=== PATIENT | male | born 1930 | race Caucasian/White ===

== ENCOUNTER 2016-06-02 10:12 | Outpatient (CLI) | payer MEDICARE, OTHER | END 2016-06-02 10:13 | disposition home or self-care (01) | DX: I48.91 Unspecified atrial fibrillation (principal); Z79.01 Long term (current) use of anticoagulants ==

== ENCOUNTER 2016-06-09 10:01 | Outpatient (CLI) | payer MEDICARE, OTHER | END 2016-06-09 10:02 | disposition home or self-care (01) | DX: I48.91 Unspecified atrial fibrillation (principal) ==

== ENCOUNTER 2016-06-17 09:42 | Outpatient (CLI) | payer MEDICARE, OTHER | END 2016-06-17 09:43 | disposition home or self-care (01) | DX: I48.91 Unspecified atrial fibrillation (principal); Z79.01 Long term (current) use of anticoagulants ==

== ENCOUNTER 2016-07-02 11:12 | Outpatient (CLI) | payer MEDICARE, OTHER | END 2016-07-02 11:13 | disposition home or self-care (01) | DX: R06.02 Shortness of breath (principal); R91.8 Other nonspecific abnormal finding of lung field ==

== ENCOUNTER 2016-07-04 12:28 | Outpatient (CLI) | payer MEDICARE, OTHER | END 2016-07-04 12:29 | disposition home or self-care (01) | DX: I36.1 Nonrheumatic tricuspid (valve) insufficiency (principal); I48.91 Unspecified atrial fibrillation; I51.7 Cardiomegaly; R06.02 Shortness of breath ==

== ENCOUNTER 2016-07-14 09:22 | Outpatient (CLI) | payer MEDICARE, OTHER | END 2016-07-14 09:23 | disposition home or self-care (01) | DX: I48.91 Unspecified atrial fibrillation (principal); Z79.01 Long term (current) use of anticoagulants ==

== ENCOUNTER 2016-08-04 09:52 | Outpatient (CLI) | payer MEDICARE, OTHER | END 2016-08-04 09:53 | disposition home or self-care (01) | DX: I48.91 Unspecified atrial fibrillation (principal); Z79.01 Long term (current) use of anticoagulants ==

== ENCOUNTER 2016-08-26 09:53 | Outpatient (CLI) | payer MEDICARE, OTHER | END 2016-08-26 09:54 | disposition home or self-care (01) | DX: I48.91 Unspecified atrial fibrillation (principal); Z79.01 Long term (current) use of anticoagulants ==

== ENCOUNTER 2016-09-22 09:12 | Outpatient (CLI) | payer MEDICARE, OTHER | END 2016-09-22 09:13 | disposition home or self-care (01) | DX: I48.91 Unspecified atrial fibrillation (principal); Z79.01 Long term (current) use of anticoagulants ==

== ENCOUNTER 2016-10-21 10:30 | Outpatient (CLI) | payer MEDICARE, OTHER | END 2016-10-21 10:31 | disposition home or self-care (01) | LOC: LAB.F 10:30 | PROVIDERS: ATTEND Internal Medicine | DX: I48.91 Unspecified atrial fibrillation (principal); Z79.01 Long term (current) use of anticoagulants | CPT/HCPCS: 85610 ==

== ENCOUNTER 2016-11-08 21:49 | Outpatient (CLI) | payer MEDICARE, OTHER | END 2016-11-08 21:50 | disposition critical access hospital (66) | LOC: EMS 21:49 | PROVIDERS: ATTEND Surgery | DX: R55 Syncope and collapse (principal) | CPT/HCPCS: A0425; A0427 ==

== ENCOUNTER 2016-11-08 22:37 | Emergency (ER) | payer MEDICARE, OTHER ==
--- NOTE | 2016-11-08 22:43 | ED Physician Documentation ---
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 still unconscious on EMS arrival but subsequently has completely returned to baseline LOC without specific interventions. on ED arrival, only c/o mild nausea. Review of Systems Constitutional: reports: Reviewed and negative Eyes: reports: Reviewed and negative Cardiac: reports: Reviewed and negative Respiratory: reports: Reviewed and negative GI: reports: Nausea. denies: Abdominal Pain, Vomiting : denies: Dysuria, Incontinent Neurologic: reports: Syncope, LOC. denies: Generalized weakness, Focal weakness , Numbness, Difficulty speaking, Seizure, Headache, Head injury PD PAST MEDICAL HISTORY - Past Medical History Past Medical History: Yes Cardiovascular: Hypertension, Atrial fibrillation Neuro: TIA - Present Medications Home Medications: Ambulatory Orders Medication Instructions Recorded Confirmed Carvedilol 25 mg PO 11/08/16 Lisinopril 5 mg PO 11/08/16 Warfarin [Coumadin] 0 mg PO 1400 11/08/16 11/08/16 levETIRAcetam [Keppra] 0 mg PO 11/08/16 - Allergies Allergies/Adverse Reactions: Allergies Allergy/AdvReac Type Severity Reaction Status Date / Time shellfish derived Allergy Severe Emesis/Diar Verified 05/13/16 15:49 breann procaine Allergy Intermediate Swelling Verified 05/13/16 15:49 diltiazem AdvReac Intermediate Hypotension Verified 05/13/16 15:49 bee stings Allergy Severe Anaphylaxis Uncoded 05/13/16 15:49 salmon AdvReac Severe Emesis/Diar Uncoded 05/13/16 15:49 breann shrimp AdvReac Severe Emesis/Diar Uncoded 05/13/16 15:49 breann - Living Situation Living Situation: reports: With spouse/s.o. Living Arrangement: reports: At home PD ED PE NORMAL - Vitals Vital signs reviewed: Yes - General General: Alert and oriented X 3, No acute distress, Well developed/nourished - HEENT HEENT: Atraumatic, PERRL, EOMI, Moist mucous membranes - Neck Neck: Supple, no meningeal sign, No bony TTP - Cardiac Cardiac: No murmur, Strong equal pulses - Respiratory Respiratory: No respiratory distress, Clear bilaterally - Abdomen Abdomen: Soft, Non tender, Non distended - Derm Derm: Normal color, Warm and dry - Extremities Extremities: No edema - Neuro Neuro: Alert and oriented X 3, tin assorter 2-12 intact, No motor deficit, No sensory deficit, Normal speech GCS Score: 15 PD ED PE EXPANDED - Cardiac Cardiac: Irregularly irregular Results - Vitals Vitals: Vital Signs - 24 hr 11/08/16 11/09/16 23:50 01:19 Heart Rate 85 100 Respiratory 18 20 Rate Blood Pressure 128/68 125/85 H O2 Saturation 97 99 Oxygen O2 Source [] Room air O2 Source [] Room air O2 Source Room air - EKG (time done) No standard instances Rate: Rate (enter#) (78) Rhythm: Atrial fibrillation [place]: Normal QRS: Normal Ischemia: Normal ST segments - Labs Labs: Laboratory Tests 11/08/16 11/08/16 11/08/16 22:51 22:51 22:51 WBC 6.4 RBC 4.23 L Hgb 13.2 L Hct 39.7 L MCV 93.8 MCH 31.3 H MCHC 33.3 RDW 13.8 Plt Count 153 MPV 8.3 Neut # 4.0 Lymph # 1.3 L [place] # 0.7 Eos # 0.4 Baso # 0.0 Absolute Nucleated RBC 0.00 Nucleated RBCs 0.0 PT 30.3 H INR 2.7 H APTT 31.5 Sodium 136 Potassium 4.0 Chloride 100 L Carbon Dioxide 27 Anion Gap 9.0 BUN 27 H Creatinine 1.1 Estimated GFR (MDRD) 64 L Glucose 130 H Calcium 9.1 Troponin I 11/08/16 22:51 WBC RBC Hgb Hct MCV MCH MCHC RDW Plt Count MPV Neut # Lymph # [place] # Eos # Baso # Absolute Nucleated RBC Nucleated RBCs PT INR APTT Sodium Potassium Chloride Carbon Dioxide Anion Gap BUN Creatinine Estimated GFR (MDRD) Glucose Calcium Troponin I < 0.04 - Rads (name of study) chest xray Radiology: Prelim report reviewed, See rad report CT head Radiology: Prelim report reviewed, See rad report PD MEDICAL DECISION MAKING - ED course Complexity details: reviewed results, re-evaluated patient, considered differential, d/w patient ED course: patient remained asymptomatic (except for mild nausea on presentation which resolved spontaneously) during ED stay. reexamination prior to disposition (d/c home) reveals no neurologic abnormalities, no focal deficits. he was able to ambulate with minimal assistance prior to discharge Departure - Departure Disposition: 01 Home, Self Care Clinical Impression: Syncope Qualifiers: Syncope type: unspecified Qualified Code(s): R55 - Syncope and collapse Condition: Good Instructions: ED Fainting Unkn Cause Follow-Up: Angus Avilez MD [Primary Care Provider] - Within 1 week Discharge Date/Time: 11/09/16 01:40
[2016-11-08 23:20] LABS: CALCIUM 9.1 mg/dL (8.5-10.3); CREATININE 1.1 mg/dL (0.6-1.2)
[2016-11-08 23:21] LABS: BASOPHILS % (AUTO) 0.6 %; EOSINOPHILS # (AUTO) 0.4 10^3/uL (0.0-0.7); EOSINOPHILS % (AUTO) 6.5 %; HCT - HEMATOCRIT 39.7 % (42.0-52.0); HGB - HEMOGLOBIN 13.2 g/dL (14.0-18.0); LYMPHOCYTES # (AUTO) 1.3 10^3/uL (1.5-3.5); LYMPHOCYTES % (AUTO) 19.9 %; MEAN CORPUSCULAR HEMOGLOBIN 31.3 pg (27.0-31.0); MEAN CORPUSCULAR HGB CONC 33.3 g/dL (32.0-36.0); MEAN CORPUSCULAR VOLUME 93.8 fL (80.0-94.0); MEAN PLATELET VOLUME 8.3 fL (7.4-11.4); MONOCYTES # (AUTO) 0.7 10^3/uL (0.0-1.0); MONOCYTES % (AUTO) 10.2 %; NEUTROPHILS % (AUTO) 62.8 %; RED BLOOD COUNT 4.23 10^6/uL (4.70-6.10); RED CELL DISTRIBUTION WIDTH 13.8 % (12.0-15.0); UNCORRECTED WHITE BLOOD COUNT 6.4 x10^3/uL; WHITE BLOOD COUNT 6.4 x10^3/uL (4.8-10.8)
[2016-11-08 23:26] LABS: INR 2.7 (0.8-1.2); PT - PROTHROMBIN TIME 30.3 secs (9.9-12.6)
[2016-11-08 23:33] LABS: PARTIAL THROMBOPLASTIN TIME 31.5 secs (24.9-33.3)
--- NOTE | 2016-11-08 23:43 | XRAY Preliminary Report ---
Exam: XR Chest 2 View PA/LAT IMPRESSION: No acute cardiopulmonary abnormality. [facility] SITE ID: [id number]
--- NOTE | 2016-11-08 23:45 | XRAY Report ---
EXAM: CHEST RADIOGRAPHY EXAM DATE: 11/08/2016 11:30 PM. CLINICAL HISTORY: Syncope. COMPARISON: 07/02/2016 chest x-ray. TECHNIQUE: 2 views. FINDINGS: Lungs/Pleura: No focal opacities evident. No pleural effusion. No pneumothorax. Normal volumes. Mediastinum: Borderline enlarged heart. No mediastinal widening. Other: None. IMPRESSION: No acute cardiopulmonary abnormality. [facility] Referring Provider Line: [phone] SITE ID: [id number]
--- NOTE | 2016-11-09 00:02 | CT Preliminary Report ---
Exam: CT Head W/O IMPRESSION: Generalized age-related cortical atrophic changes without evidence of acute intracranial abnormality. [facility] SITE ID: [id number]
--- NOTE | 2016-11-09 00:05 | CT Report ---
EXAM: CT HEAD EXAM DATE: 11/08/2016 11:30 PM. CLINICAL HISTORY: Syncope. COMPARISON: MR brain 12/19/2008. Head CT 12/28/2005. TECHNIQUE: Multiaxial CT images were obtained from the foramen magnum to the vertex. IV contrast: Non e. Reformats: Coronal. In accordance with CT protocol optimization, one or more of the following dose reduction techniques w ere utilized for this exam: automated exposure control, adjustment of mA and/or KV based on patient s ize, or use of iterative reconstructive technique. FINDINGS: Parenchyma: No intraparenchymal hemorrhage. No evidence of mass, midline shift, or CT findings of acu te infarction. Chavez-white differentiation is distinct. Small chronic lacunar infarcts at the bilatera l posterior limb internal capsules right greater than left. Bilateral basal ganglia physiologic calci fications. Extraaxial Spaces: Normal for age. No subdural or epidural collections identified. Ventricles: The ventricles and cortical sulci are enlarged, consistent with age-related tissue loss. Sinuses: Imaged paranasal sinuses, orbits, and mastoids show no significant abnormality. Bones: No evidence of fracture or calvarial defect. Other: Diffuse chronic microangiopathic white matter changes are evident. IMPRESSION: Generalized age-related cortical atrophic changes without evidence of acute intracranial abnormality. [facility] Referring Provider Line: [phone] SITE ID: [id number]
[2016-11-09 01:21] VITALS: BP 125/85
== END 2016-11-09 01:40 | disposition home or self-care (01) ==
LOC: EDUNIT# → ED 22:37 → SUPCPDRO 22:37 → ED 11-09 01:40
DX: R55 Syncope and collapse (principal); R11.0 Nausea; I10 Essential (primary) hypertension; I48.91 Unspecified atrial fibrillation; Z79.01 Long term (current) use of anticoagulants; Z86.73 Personal history of transient ischemic attack (TIA), and cerebral infarction without residual deficits
CPT/HCPCS: 36415; 70450; 71020; 80048; 84484; 85025; 85610; 85730; 93005; 93010; 99284

== ENCOUNTER 2016-11-17 08:59 | Outpatient (CLI) | payer MEDICARE, OTHER | END 2016-11-17 09:00 | disposition home or self-care (01) | LOC: LAB.F 08:59 | PROVIDERS: ATTEND Internal Medicine | DX: I48.91 Unspecified atrial fibrillation (principal); Z79.01 Long term (current) use of anticoagulants | CPT/HCPCS: 85610 ==

== ENCOUNTER 2016-12-15 08:25 | Outpatient (CLI) | payer MEDICARE, OTHER | END 2016-12-15 08:26 | disposition home or self-care (01) | LOC: LAB.F 08:25 | PROVIDERS: ATTEND Internal Medicine | DX: I48.91 Unspecified atrial fibrillation (principal); Z79.01 Long term (current) use of anticoagulants | CPT/HCPCS: 85610 ==

== ENCOUNTER 2017-01-12 09:20 | Outpatient (CLI) | payer MEDICARE, OTHER | END 2017-01-12 09:21 | disposition home or self-care (01) | LOC: LAB.F 09:20 | PROVIDERS: ATTEND Internal Medicine | DX: I48.91 Unspecified atrial fibrillation (principal); Z79.01 Long term (current) use of anticoagulants | CPT/HCPCS: 85610 ==

== ENCOUNTER 2017-02-09 09:08 | Outpatient (CLI) | payer MEDICARE, OTHER | END 2017-02-09 09:09 | disposition home or self-care (01) | LOC: LAB.F 09:08 | PROVIDERS: ATTEND Internal Medicine | DX: I48.91 Unspecified atrial fibrillation (principal); Z79.01 Long term (current) use of anticoagulants | CPT/HCPCS: 85610 ==

== ENCOUNTER 2017-03-16 13:32 | Outpatient (CLI) | payer MEDICARE, OTHER | END 2017-03-16 13:33 | disposition home or self-care (01) | LOC: LAB.F 13:32 | PROVIDERS: ATTEND Internal Medicine | DX: I48.91 Unspecified atrial fibrillation (principal); Z79.01 Long term (current) use of anticoagulants | CPT/HCPCS: 85610 ==

== ENCOUNTER 2017-04-13 09:46 | Outpatient (CLI) | payer MEDICARE, OTHER | END 2017-04-13 09:47 | disposition home or self-care (01) | LOC: LAB.F 09:46 | PROVIDERS: ATTEND Internal Medicine | DX: I48.91 Unspecified atrial fibrillation (principal); Z79.01 Long term (current) use of anticoagulants | CPT/HCPCS: 85610 ==

== ENCOUNTER 2017-05-11 09:46 | Outpatient (CLI) | payer MEDICARE, OTHER | END 2017-05-11 09:47 | disposition home or self-care (01) | LOC: LAB.F 09:46 | PROVIDERS: ATTEND Internal Medicine | DX: I48.91 Unspecified atrial fibrillation (principal); Z79.01 Long term (current) use of anticoagulants | CPT/HCPCS: 85610 ==

== ENCOUNTER 2017-06-01 09:10 | Outpatient (CLI) | payer MEDICARE, OTHER | END 2017-06-01 09:11 | disposition home or self-care (01) | LOC: LAB.F 09:10 | PROVIDERS: ATTEND Internal Medicine | DX: I48.91 Unspecified atrial fibrillation (principal); Z79.01 Long term (current) use of anticoagulants | CPT/HCPCS: 85610 ==

== ENCOUNTER 2017-07-06 09:29 | Outpatient (CLI) | payer MEDICARE, OTHER | END 2017-07-06 09:30 | disposition home or self-care (01) | LOC: LAB.F 09:29 | PROVIDERS: ATTEND Internal Medicine | DX: I48.91 Unspecified atrial fibrillation (principal); Z79.01 Long term (current) use of anticoagulants | CPT/HCPCS: 85610 ==

== ENCOUNTER 2017-08-03 09:29 | Outpatient (CLI) | payer MEDICARE, OTHER | END 2017-08-03 09:30 | disposition home or self-care (01) | LOC: LAB.F 09:29 | PROVIDERS: ATTEND Internal Medicine | DX: I48.91 Unspecified atrial fibrillation (principal); Z79.01 Long term (current) use of anticoagulants | CPT/HCPCS: 85610 ==

== ENCOUNTER 2017-09-07 09:08 | Outpatient (CLI) | payer MEDICARE, OTHER | END 2017-09-07 09:09 | disposition home or self-care (01) | LOC: LAB.F 09:08 | PROVIDERS: ATTEND Internal Medicine | DX: I48.91 Unspecified atrial fibrillation (principal); Z79.01 Long term (current) use of anticoagulants | CPT/HCPCS: 85610 ==

== ENCOUNTER 2017-09-17 09:40 | Outpatient (CLI) | payer MEDICARE, OTHER | END 2017-09-17 09:41 | disposition home or self-care (01) | LOC: LAB.F 09:40 | PROVIDERS: ATTEND Internal Medicine | DX: I48.91 Unspecified atrial fibrillation (principal); Z79.01 Long term (current) use of anticoagulants | CPT/HCPCS: 85610 ==

== ENCOUNTER 2017-10-20 09:36 | Outpatient (CLI) | payer MEDICARE, OTHER | END 2017-10-20 09:37 | disposition home or self-care (01) | LOC: LAB.F 09:36 | PROVIDERS: ATTEND Internal Medicine | DX: I48.91 Unspecified atrial fibrillation (principal); Z79.01 Long term (current) use of anticoagulants | CPT/HCPCS: 85610 ==

== ENCOUNTER 2017-10-27 09:44 | Outpatient (CLI) | payer MEDICARE, OTHER | END 2017-10-27 09:45 | disposition home or self-care (01) | LOC: LAB.F 09:44 | PROVIDERS: ATTEND Internal Medicine | DX: I48.91 Unspecified atrial fibrillation (principal); Z79.01 Long term (current) use of anticoagulants | CPT/HCPCS: 85610 ==

== ENCOUNTER 2017-11-02 10:16 | Outpatient (CLI) | payer MEDICARE, OTHER | END 2017-11-02 10:17 | disposition home or self-care (01) | LOC: LAB.F 10:16 | PROVIDERS: ATTEND Internal Medicine | DX: I48.91 Unspecified atrial fibrillation (principal); Z79.01 Long term (current) use of anticoagulants | CPT/HCPCS: 85610 ==

== ENCOUNTER 2017-11-16 08:59 | Outpatient (CLI) | payer MEDICARE, OTHER | END 2017-11-16 09:00 | disposition home or self-care (01) | LOC: LAB.F 08:59 | PROVIDERS: ATTEND Internal Medicine | DX: I48.91 Unspecified atrial fibrillation (principal); Z79.01 Long term (current) use of anticoagulants | CPT/HCPCS: 85610 ==

== ENCOUNTER 2017-11-30 09:30 | Outpatient (CLI) | payer MEDICARE, OTHER | END 2017-11-30 09:31 | disposition home or self-care (01) | LOC: LAB.F 09:30 | PROVIDERS: ATTEND Internal Medicine | DX: I48.91 Unspecified atrial fibrillation (principal); Z79.01 Long term (current) use of anticoagulants | CPT/HCPCS: 85610 ==

== ENCOUNTER 2017-12-28 09:18 | Outpatient (CLI) | payer MEDICARE, OTHER | END 2017-12-28 09:19 | disposition home or self-care (01) | LOC: LAB.F 09:18 | PROVIDERS: ATTEND Internal Medicine | DX: I48.91 Unspecified atrial fibrillation (principal); Z79.01 Long term (current) use of anticoagulants | CPT/HCPCS: 85610 ==

== ENCOUNTER 2018-01-25 09:36 | Outpatient (CLI) | payer MEDICARE, OTHER | END 2018-01-25 09:37 | disposition home or self-care (01) | LOC: LAB.F 09:36 | PROVIDERS: ATTEND Internal Medicine | DX: I48.91 Unspecified atrial fibrillation (principal); Z79.01 Long term (current) use of anticoagulants | CPT/HCPCS: 85610 ==

== ENCOUNTER 2018-02-22 10:32 | Outpatient (CLI) | payer MEDICARE, OTHER | END 2018-02-22 10:33 | disposition home or self-care (01) | LOC: LAB.F 10:32 | PROVIDERS: ATTEND Internal Medicine | DX: I48.91 Unspecified atrial fibrillation (principal); Z79.01 Long term (current) use of anticoagulants | CPT/HCPCS: 85610 ==

== ENCOUNTER 2018-03-20 12:44 | Outpatient (CLI) | payer MEDICARE, OTHER ==
--- NOTE | 2018-03-21 12:02 | Ultrasound Report ---
Reason: DYSPHAGIA X 2 MONTHS Procedure Date: 03/20/2018 Accession Number: [id number] / [id number] Procedure: US - Head or Neck Soft Tissue CPT Code: FULL RESULT: EXAM: NECK ULTRASOUND EXAM DATE: 03/20/2018 01:30 PM. CLINICAL HISTORY: DYSPHAGIA X 2 MONTHS. COMPARISON: None. TECHNIQUE: Real-time sonographic imaging was performed by the education officer utilizing color-flow. Multiple customer field representative static images were saved for review. FINDINGS: Portions of the midline and left neck are scanned in the areas indicated by the patient. No cystic or solid mass, abnormal fluid collections or other abnormality is seen. IMPRESSION: Negative limited neck ultrasound. No abnormalities identified in the areas of clinical interest as indicated by the patient. [facility]
== END 2018-03-20 12:45 | disposition home or self-care (01) ==
LOC: DI 12:44
PROVIDERS: ATTEND Internal Medicine
DX: R13.10 Dysphagia, unspecified (principal)
CPT/HCPCS: 76536

== ENCOUNTER 2018-03-29 09:34 | Outpatient (CLI) | payer MEDICARE, OTHER | END 2018-03-29 09:35 | disposition home or self-care (01) | LOC: LAB.F 09:34 | PROVIDERS: ATTEND Internal Medicine | DX: I48.91 Unspecified atrial fibrillation (principal); Z79.01 Long term (current) use of anticoagulants | CPT/HCPCS: 85610 ==

== ENCOUNTER 2018-04-12 09:14 | Outpatient (CLI) | payer MEDICARE, OTHER ==
[2018-04-12 17:48] LABS: INR 2.4 (0.8-1.2); PT - PROTHROMBIN TIME 27.1 secs (9.9-12.6)
== END 2018-04-12 09:15 | disposition home or self-care (01) ==
LOC: LAB.F 09:14
PROVIDERS: ATTEND Internal Medicine
DX: I48.91 Unspecified atrial fibrillation (principal); Z79.01 Long term (current) use of anticoagulants
CPT/HCPCS: 36415; 85610

== ENCOUNTER 2018-05-05 10:36 | Outpatient (CLI) | payer MEDICARE, OTHER ==
[2018-05-05 11:07] LABS: BASOPHILS % (AUTO) 0.4 %; EOSINOPHILS # (AUTO) 0.3 10^3/uL (0.0-0.7); EOSINOPHILS % (AUTO) 4.6 %; HGB - HEMOGLOBIN 13.7 g/dL (14.0-18.0); LYMPHOCYTES % (AUTO) 16.6 %; MEAN CORPUSCULAR HEMOGLOBIN 31.9 pg (27.0-31.0); MEAN CORPUSCULAR HGB CONC 33.8 g/dL (32.0-36.0); MEAN CORPUSCULAR VOLUME 94.4 fL (80.0-94.0); MEAN PLATELET VOLUME 7.9 fL (7.4-11.4); MONOCYTES # (AUTO) 0.6 10^3/uL (0.0-1.0); MONOCYTES % (AUTO) 10.5 %; NEUTROPHILS # (AUTO) 4.1 10^3/uL (1.5-6.6); NEUTROPHILS % (AUTO) 67.9 %; PLT - PLATELET COUNT 171 10^3/uL (130-450); RED CELL DISTRIBUTION WIDTH 13.8 % (12.0-15.0)
[2018-05-05 11:25] LABS: INR 2.5 (0.8-1.2); PT - PROTHROMBIN TIME 27.7 secs (9.9-12.6)
[2018-05-05 11:37] LABS: ALBUMIN 4.1 g/dL (3.2-5.5); ALBUMIN/GLOBULIN RATIO 1.4 (1.0-2.2); BILIRUBIN,TOTAL 0.8 mg/dL (0.2-1.0); CALCIUM 8.9 mg/dL (8.5-10.3); CREATININE 0.9 mg/dL (0.6-1.2)
[2018-05-05 11:56] LABS: THYROID STIMULATING HORMONE 1.52 uIU/mL (0.34-5.60)
[2018-05-05 11:58] LABS: FREE T4 (FREE THYROXINE) 1.1 ng/dL (0.58-1.64)
== END 2018-05-05 10:37 | disposition home or self-care (01) ==
LOC: LAB 10:36
PROVIDERS: ATTEND Internal Medicine Cardiovascular Disease
DX: I48.91 Unspecified atrial fibrillation (principal); Z79.899 Other long term (current) drug therapy
CPT/HCPCS: 36415; 80053; 84439; 84443; 85025; 85610

== ENCOUNTER 2018-05-06 09:10 | Outpatient (CLI) | payer MEDICARE, OTHER | END 2018-05-06 09:11 | disposition home or self-care (01) | LOC: DI 09:10 | PROVIDERS: ATTEND Internal Medicine Cardiovascular Disease | DX: I48.91 Unspecified atrial fibrillation (principal); R53.83 Other fatigue; I51.7 Cardiomegaly; I08.1 Rheumatic disorders of both mitral and tricuspid valves | CPT/HCPCS: 93306 ==

== ENCOUNTER 2018-05-10 09:44 | Outpatient (CLI) | payer MEDICARE, OTHER | END 2018-05-10 09:45 | disposition home or self-care (01) | LOC: LAB.F 09:44 | PROVIDERS: ATTEND Internal Medicine | DX: I48.91 Unspecified atrial fibrillation (principal); Z79.01 Long term (current) use of anticoagulants | CPT/HCPCS: 85610 ==

== ENCOUNTER 2018-06-07 09:29 | Outpatient (CLI) | payer MEDICARE, OTHER | END 2018-06-07 09:30 | disposition home or self-care (01) | LOC: LAB.F 09:29 | PROVIDERS: ATTEND Internal Medicine | DX: I48.91 Unspecified atrial fibrillation (principal); Z79.01 Long term (current) use of anticoagulants | CPT/HCPCS: 85610 ==

== ENCOUNTER 2018-07-18 09:08 | Outpatient (CLI) | payer MEDICARE, OTHER | END 2018-07-18 09:09 | disposition home or self-care (01) | LOC: LAB.F 09:08 | PROVIDERS: ATTEND Internal Medicine | DX: I48.91 Unspecified atrial fibrillation (principal); Z79.01 Long term (current) use of anticoagulants | CPT/HCPCS: 85610 ==

== ENCOUNTER 2018-08-09 10:01 | Outpatient (CLI) | payer MEDICARE, OTHER | END 2018-08-09 10:02 | disposition home or self-care (01) | LOC: LAB.F 10:01 | PROVIDERS: ATTEND Internal Medicine | DX: I48.91 Unspecified atrial fibrillation (principal); Z79.01 Long term (current) use of anticoagulants | CPT/HCPCS: 85610 ==

== ENCOUNTER 2018-09-07 09:27 | Outpatient (CLI) | payer MEDICARE, OTHER | END 2018-09-07 09:28 | disposition home or self-care (01) | LOC: LAB.F 09:27 | PROVIDERS: ATTEND Internal Medicine | DX: I48.91 Unspecified atrial fibrillation (principal); Z79.01 Long term (current) use of anticoagulants | CPT/HCPCS: 85610 ==

== ENCOUNTER 2018-09-29 03:50 | Outpatient (CLI) | payer MEDICARE, OTHER | END 2018-09-29 03:51 | disposition EMS.NT | LOC: EMS 03:50 | PROVIDERS: ATTEND Surgery | DX: R41.82 Altered mental status, unspecified (principal) ==

== ENCOUNTER 2018-10-04 09:21 | Outpatient (CLI) | payer MEDICARE, OTHER | END 2018-10-04 09:22 | disposition home or self-care (01) | LOC: LAB.F 09:21 | PROVIDERS: ATTEND Internal Medicine | DX: I48.91 Unspecified atrial fibrillation (principal); Z79.01 Long term (current) use of anticoagulants | CPT/HCPCS: 85610 ==

== ENCOUNTER 2018-11-01 09:44 | Outpatient (CLI) | payer MEDICARE, OTHER | END 2018-11-01 09:45 | disposition home or self-care (01) | LOC: LAB.F 09:44 | PROVIDERS: ATTEND Internal Medicine | DX: I48.91 Unspecified atrial fibrillation (principal); Z79.01 Long term (current) use of anticoagulants | CPT/HCPCS: 85610 ==

== ENCOUNTER 2018-11-30 08:34 | Outpatient (CLI) | payer MEDICARE, OTHER | END 2018-11-30 08:35 | disposition home or self-care (01) | LOC: LAB.S 08:34 | PROVIDERS: ATTEND Internal Medicine | DX: I48.91 Unspecified atrial fibrillation (principal); Z79.01 Long term (current) use of anticoagulants | CPT/HCPCS: 85610 ==

== ENCOUNTER 2018-12-14 09:41 | Outpatient (CLI) | payer MEDICARE, OTHER | END 2018-12-14 09:42 | disposition home or self-care (01) | LOC: LAB.S 09:41 | PROVIDERS: ATTEND Internal Medicine | DX: I48.91 Unspecified atrial fibrillation (principal); Z79.01 Long term (current) use of anticoagulants | CPT/HCPCS: 85610 ==

== ENCOUNTER 2018-12-27 08:59 | Outpatient (CLI) | payer MEDICARE, OTHER | END 2018-12-27 09:00 | disposition home or self-care (01) | LOC: LAB.S 08:59 | PROVIDERS: ATTEND Internal Medicine | DX: I48.91 Unspecified atrial fibrillation (principal); Z79.01 Long term (current) use of anticoagulants | CPT/HCPCS: 85610 ==

== ENCOUNTER 2019-01-11 09:44 | Outpatient (CLI) | payer MEDICARE, OTHER | END 2019-01-11 09:45 | disposition home or self-care (01) | LOC: LAB.S 09:44 | PROVIDERS: ATTEND Internal Medicine | DX: I48.91 Unspecified atrial fibrillation (principal); Z79.01 Long term (current) use of anticoagulants | CPT/HCPCS: 85610 ==

== ENCOUNTER 2019-01-19 08:43 | Outpatient (CLI) | payer MEDICARE, OTHER ==
[2019-01-19 16:59] LABS: BASOPHILS % (AUTO) 0.1 %; EOSINOPHILS % (AUTO) 0.2 %; HGB - HEMOGLOBIN 12.8 g/dL (14.0-18.0); LYMPHOCYTES # (AUTO) 1.1 10^3/uL (1.5-3.5); LYMPHOCYTES % (AUTO) 10.4 %; MEAN CORPUSCULAR HEMOGLOBIN 32.1 pg (27.0-31.0); MEAN CORPUSCULAR HGB CONC 32.3 g/dL (32.0-36.0); MEAN CORPUSCULAR VOLUME 99.2 fL (80.0-94.0); MEAN PLATELET VOLUME 10.8 fL (7.4-11.4); MONOCYTES # (AUTO) 0.7 10^3/uL (0.0-1.0); MONOCYTES % (AUTO) 6.8 %; NEUTROPHILS # (AUTO) 8.3 10^3/uL (1.5-6.6); NEUTROPHILS % (AUTO) 81.5 %; PLT - PLATELET COUNT 175 10^3/uL (130-450); RED BLOOD COUNT 3.99 10^6/uL (4.70-6.10); RED CELL DISTRIBUTION WIDTH 13.4 % (12.0-15.0); WHITE BLOOD COUNT 10.2 x10^3/uL (4.8-10.8)
[2019-01-19 17:12] LABS: ALBUMIN 3.8 g/dL (3.2-5.5); ALBUMIN/GLOBULIN RATIO 1.4 (1.0-2.2); BILIRUBIN,TOTAL 0.8 mg/dL (0.2-1.0); CALCIUM 8.8 mg/dL (8.5-10.3); CREATININE 0.9 mg/dL (0.6-1.2); TOTAL PROTEIN 6.6 g/dL (6.7-8.2)
== END 2019-01-19 08:44 | disposition home or self-care (01) ==
LOC: LAB.S 08:43
PROVIDERS: ATTEND Internal Medicine
DX: I48.91 Unspecified atrial fibrillation (principal); L28.2 Other prurigo
CPT/HCPCS: 36415; 80053; 85025; 85610

== ENCOUNTER 2019-01-25 10:26 | Outpatient (CLI) | payer MEDICARE, OTHER | END 2019-01-25 10:27 | disposition home or self-care (01) | LOC: LAB.S 10:26 | PROVIDERS: ATTEND Internal Medicine | DX: I48.91 Unspecified atrial fibrillation (principal); Z79.01 Long term (current) use of anticoagulants | CPT/HCPCS: 85610 ==

== ENCOUNTER 2019-02-01 09:43 | Outpatient (CLI) | payer MEDICARE, OTHER | END 2019-02-01 09:44 | disposition home or self-care (01) | LOC: LAB.S 09:43 | PROVIDERS: ATTEND Internal Medicine | DX: I48.91 Unspecified atrial fibrillation (principal); Z79.01 Long term (current) use of anticoagulants | CPT/HCPCS: 85610 ==

== ENCOUNTER 2019-02-08 09:21 | Outpatient (CLI) | payer MEDICARE, OTHER | END 2019-02-08 09:22 | disposition home or self-care (01) | LOC: LAB.S 09:21 | PROVIDERS: ATTEND Internal Medicine | DX: I48.91 Unspecified atrial fibrillation (principal); Z79.01 Long term (current) use of anticoagulants | CPT/HCPCS: 85610 ==

== ENCOUNTER 2019-02-17 08:49 | Outpatient (CLI) | payer MEDICARE, OTHER | END 2019-02-17 08:50 | disposition home or self-care (01) | LOC: DI 08:49 | PROVIDERS: ATTEND Internal Medicine | DX: I27.20 Pulmonary hypertension, unspecified (principal); I08.2 Rheumatic disorders of both aortic and tricuspid valves; I48.91 Unspecified atrial fibrillation | CPT/HCPCS: 93306 ==

== ENCOUNTER 2019-03-08 09:31 | Outpatient (CLI) | payer MEDICARE, OTHER | END 2019-03-08 09:32 | disposition home or self-care (01) | LOC: LAB.S 09:31 | PROVIDERS: ATTEND Internal Medicine | DX: I48.91 Unspecified atrial fibrillation (principal); Z79.01 Long term (current) use of anticoagulants | CPT/HCPCS: 85610 ==

== ENCOUNTER 2019-04-04 09:17 | Outpatient (CLI) | payer MEDICARE, OTHER | END 2019-04-04 09:18 | disposition home or self-care (01) | LOC: LAB.S 09:17 | PROVIDERS: ATTEND Internal Medicine | DX: I48.91 Unspecified atrial fibrillation (principal); Z79.01 Long term (current) use of anticoagulants | CPT/HCPCS: 85610 ==

== ENCOUNTER 2019-04-14 12:22 | Outpatient (CLI) | payer MEDICARE, OTHER ==
[2019-04-14 17:25] LABS: BASOPHILS % (AUTO) 0.5 %; EOSINOPHILS # (AUTO) 0.4 10^3/uL (0.0-0.7); EOSINOPHILS % (AUTO) 5.7 %; HGB - HEMOGLOBIN 13.3 g/dL (14.0-18.0); LYMPHOCYTES # (AUTO) 1.1 10^3/uL (1.5-3.5); LYMPHOCYTES % (AUTO) 17.6 %; MEAN CORPUSCULAR HEMOGLOBIN 31.2 pg (27.0-31.0); MEAN CORPUSCULAR HGB CONC 32.3 g/dL (32.0-36.0); MEAN CORPUSCULAR VOLUME 96.7 fL (80.0-94.0); MONOCYTES # (AUTO) 0.7 10^3/uL (0.0-1.0); MONOCYTES % (AUTO) 11.5 %; NEUTROPHILS % (AUTO) 64.2 %; PLT - PLATELET COUNT 180 10^3/uL (130-450); RED BLOOD COUNT 4.26 10^6/uL (4.70-6.10); RED CELL DISTRIBUTION WIDTH 12.6 % (12.0-15.0); WHITE BLOOD COUNT 6.2 x10^3/uL (4.8-10.8)
[2019-04-14 17:36] LABS: ALBUMIN 4.3 g/dL (3.2-5.5); ALBUMIN/GLOBULIN RATIO 1.5 (1.0-2.2); CALCIUM 9.4 mg/dL (8.5-10.3); TOTAL PROTEIN 7.2 g/dL (6.7-8.2)
== END 2019-04-14 12:23 | disposition home or self-care (01) ==
LOC: LAB.S 12:22
PROVIDERS: ATTEND Physician Assistant
DX: D48.5 Neoplasm of uncertain behavior of skin (principal); L53.8 Other specified erythematous conditions; L29.8 Other pruritus; R20.8 Other disturbances of skin sensation; R21 Rash and other nonspecific skin eruption
CPT/HCPCS: 36415; 80053; 85025

== ENCOUNTER 2019-04-18 10:01 | Outpatient (CLI) | payer MEDICARE, OTHER | END 2019-04-18 10:02 | disposition home or self-care (01) | LOC: LAB.S 10:01 | PROVIDERS: ATTEND Internal Medicine | DX: I48.91 Unspecified atrial fibrillation (principal); Z79.01 Long term (current) use of anticoagulants | CPT/HCPCS: 85610 ==

== ENCOUNTER 2019-05-02 10:13 | Outpatient (CLI) | payer MEDICARE, OTHER | END 2019-05-02 10:14 | disposition home or self-care (01) | LOC: LAB.S 10:13 | PROVIDERS: ATTEND Internal Medicine | DX: I48.91 Unspecified atrial fibrillation (principal); Z79.01 Long term (current) use of anticoagulants | CPT/HCPCS: 85610 ==

== ENCOUNTER 2019-06-07 09:38 | Outpatient (CLI) | payer MEDICARE, OTHER | END 2019-06-07 09:39 | disposition home or self-care (01) | LOC: LAB.S 09:38 | PROVIDERS: ATTEND Internal Medicine | DX: Z79.01 Long term (current) use of anticoagulants (principal); I48.91 Unspecified atrial fibrillation | CPT/HCPCS: 85610 ==

== ENCOUNTER 2019-07-04 10:42 | Outpatient (CLI) | payer MEDICARE, OTHER | END 2019-07-04 10:43 | disposition home or self-care (01) | LOC: LAB.S 10:42 | PROVIDERS: ATTEND Internal Medicine | DX: I48.91 Unspecified atrial fibrillation (principal); Z79.01 Long term (current) use of anticoagulants | CPT/HCPCS: 85610 ==

== ENCOUNTER 2019-08-10 09:00 | Outpatient (CLI) | payer MEDICARE, OTHER | END 2019-08-10 09:01 | disposition home or self-care (01) | LOC: LAB.S 09:00 | PROVIDERS: ATTEND Internal Medicine | DX: I48.91 Unspecified atrial fibrillation (principal); Z79.01 Long term (current) use of anticoagulants | CPT/HCPCS: 85610 ==

== ENCOUNTER 2019-09-18 11:34 | Outpatient (CLI) | payer MEDICARE, OTHER | END 2019-09-18 11:35 | disposition home or self-care (01) | LOC: LAB 11:34 | PROVIDERS: ATTEND Internal Medicine | DX: I48.91 Unspecified atrial fibrillation (principal); Z79.01 Long term (current) use of anticoagulants | CPT/HCPCS: 85610 ==

== ENCOUNTER 2019-09-18 11:52 | Outpatient (CLI) | payer MEDICARE, OTHER ==
--- NOTE | 2019-09-18 19:35 | XRAY Report ---
Reason: LOW BACK PAIN,OTH SYMPTOMS AND SIGNS INVOLVING THE Procedure Date: 09/18/2019 Accession Number: [id number] / [id number] Procedure: XR - Lumbar Spine 2 View CPT Code: Final Report FULL RESULT: EXAM: LUMBOSACRAL SPINE RADIOGRAPHY EXAM DATE: 09/18/2019 12:24 PM. CLINICAL HISTORY: 88-year-old male. LOW BACK PAIN, OTH SYMPTOMS AND SIGNS INVOLVING THE. COMPARISONS: None. TECHNIQUE: 2 views. FINDINGS: Alignment: Rotatory dextroscoliosis of the thoracic spine, Starks angle measuring 16 degrees. Straightening of the normal lumbar lordosis. Bones: Five myi-iib-glnrbuv lumbar vertebral bodies are present. The bones are markedly osteopenic which decreases sensitivity for detection of fractures. No definite radiographic evidence of acute fracture. Bulky anterior and left lateral osteophytosis. Disks: Severe disk height loss and endplate sclerosis L4-L5 and L5-S1. Facets: Severe facet arthropathy L3-L4 through L5-S1. Sacroiliac Joints: Unremarkable. Soft Tissues: Atherosclerosis of the visualized aorta and its major branches. The visualized bowel gas pattern is normal. IMPRESSION: 1. The bones are markedly osteopenic which decreases sensitivity for detection of fractures. No definite radiographic evidence of acute fracture. Bulky anterior and left lateral osteophytosis. 2. Advanced degenerative spondylosis. 3. Rotatory dextroscoliosis of the thoracic spine, Starks angle measuring 16 degrees. Straightening of the normal lumbar lordosis. [facility]
--- NOTE | 2019-09-19 12:54 | XRAY Report ---
Reason: LOW BACK PAIN,OTH SYMPTOMS AND SIGNS INVOLVING THE Procedure Date: 09/18/2019 Accession Number: [id number] / [id number] Procedure: XR - Chest 2 View X-Ray CPT Code: 96366 Final Report FULL RESULT: EXAM: CHEST RADIOGRAPHY EXAM DATE: 09/18/2019 12:24 PM. CLINICAL HISTORY: Abnormal chest sounds. COMPARISON: CHEST 2 VIEW PA/LAT 11/08/2016 11:07 PM. TECHNIQUE: 2 views. On the frontal view, the patient is mildly rotated toward the left. FINDINGS: Lungs/Pleura: No focal opacities evident. No pleural effusion. No pneumothorax. Normal volumes. Mediastinum: Heart and mediastinal contours are unremarkable. Other: Suboptimally visualized apparent lateral left seventh and eighth rib fractures of uncertain chronicity. IMPRESSION: 1. Suboptimally visualized apparent lateral left seventh and eighth rib fractures of uncertain chronicity. 2. Lungs are clear. No pneumothorax. [facility]
== END 2019-09-18 11:53 | disposition home or self-care (01) ==
LOC: DI 11:52
PROVIDERS: ATTEND Nurse Practitioner Family
DX: R09.89 Other specified symptoms and signs involving the circulatory and respiratory systems (principal); M47.816 Spondylosis without myelopathy or radiculopathy, lumbar region; M47.817 Spondylosis without myelopathy or radiculopathy, lumbosacral region; M51.36 Other intervertebral disc degeneration, lumbar region; M51.37 Other intervertebral disc degeneration, lumbosacral region; I48.91 Unspecified atrial fibrillation; Z79.01 Long term (current) use of anticoagulants
CPT/HCPCS: 71046; 72100; 85610

== ENCOUNTER 2019-11-17 09:07 | Outpatient (CLI) | payer MEDICARE, OTHER | END 2019-11-17 09:08 | disposition home or self-care (01) | LOC: LAB.S 09:07 | PROVIDERS: ATTEND Internal Medicine | DX: I48.91 Unspecified atrial fibrillation (principal); Z79.01 Long term (current) use of anticoagulants | CPT/HCPCS: 85610 ==

== ENCOUNTER 2019-11-30 09:32 | Outpatient (CLI) | payer MEDICARE, OTHER | END 2019-11-30 09:33 | disposition home or self-care (01) | LOC: LAB.S 09:32 | PROVIDERS: ATTEND Internal Medicine | DX: I48.91 Unspecified atrial fibrillation (principal); Z79.01 Long term (current) use of anticoagulants | CPT/HCPCS: 85610 ==

== ENCOUNTER 2019-12-28 09:40 | Outpatient (CLI) | payer MEDICARE, OTHER | END 2019-12-28 09:41 | disposition home or self-care (01) | LOC: LAB.S 09:40 | PROVIDERS: ATTEND Internal Medicine | DX: I48.91 Unspecified atrial fibrillation (principal); Z79.01 Long term (current) use of anticoagulants | CPT/HCPCS: 85610 ==

== ENCOUNTER 2020-01-11 09:37 | Outpatient (CLI) | payer MEDICARE, OTHER | END 2020-01-11 09:38 | disposition home or self-care (01) | LOC: LAB.S 09:37 | PROVIDERS: ATTEND Internal Medicine | DX: I48.91 Unspecified atrial fibrillation (principal); Z79.01 Long term (current) use of anticoagulants | CPT/HCPCS: 85610 ==

== ENCOUNTER 2020-02-27 09:26 | Outpatient (CLI) | payer MEDICARE, OTHER | END 2020-02-27 09:27 | disposition home or self-care (01) | LOC: LAB.S 09:26 | PROVIDERS: ATTEND Internal Medicine | DX: I48.91 Unspecified atrial fibrillation (principal); Z79.01 Long term (current) use of anticoagulants | CPT/HCPCS: 85610 ==

== ENCOUNTER 2020-03-20 09:36 | Outpatient (CLI) | payer MEDICARE, OTHER | END 2020-03-20 09:37 | disposition home or self-care (01) | LOC: LAB.S 09:36 | PROVIDERS: ATTEND Internal Medicine | DX: I48.91 Unspecified atrial fibrillation (principal); Z79.01 Long term (current) use of anticoagulants | CPT/HCPCS: 85610 ==

== ENCOUNTER 2020-04-16 09:19 | Outpatient (CLI) | payer MEDICARE, OTHER | END 2020-04-16 09:20 | disposition home or self-care (01) | LOC: LAB.S 09:19 | PROVIDERS: ATTEND Internal Medicine | DX: I48.91 Unspecified atrial fibrillation (principal); Z79.01 Long term (current) use of anticoagulants | CPT/HCPCS: 85610 ==

== ENCOUNTER 2020-05-21 09:50 | Outpatient (CLI) | payer MEDICARE, OTHER | END 2020-05-21 09:51 | disposition home or self-care (01) | LOC: LAB.S 09:50 | PROVIDERS: ATTEND Internal Medicine | DX: I48.91 Unspecified atrial fibrillation (principal); Z79.01 Long term (current) use of anticoagulants | CPT/HCPCS: 85610 ==

== ENCOUNTER 2020-06-18 11:22 | Outpatient (CLI) | payer MEDICARE, OTHER | END 2020-06-18 11:23 | disposition home or self-care (01) | LOC: LAB.S 11:22 | PROVIDERS: ATTEND Internal Medicine | DX: I48.91 Unspecified atrial fibrillation (principal); Z79.01 Long term (current) use of anticoagulants | CPT/HCPCS: 85610 ==

== ENCOUNTER 2020-07-17 10:03 | Outpatient (CLI) | payer MEDICARE, OTHER | END 2020-07-17 10:04 | disposition home or self-care (01) | LOC: LAB.S 10:03 | PROVIDERS: ATTEND Internal Medicine | DX: I48.91 Unspecified atrial fibrillation (principal); Z79.01 Long term (current) use of anticoagulants | CPT/HCPCS: 85610 ==

== ENCOUNTER 2020-08-12 10:10 | Outpatient (CLI) | payer MEDICARE, OTHER | END 2020-08-12 10:11 | disposition home or self-care (01) | LOC: LAB.S 10:10 | PROVIDERS: ATTEND Internal Medicine | DX: Z79.01 Long term (current) use of anticoagulants (principal); I48.91 Unspecified atrial fibrillation | CPT/HCPCS: 36415; 85610 ==

== ENCOUNTER 2020-09-10 09:16 | Outpatient (CLI) | payer MEDICARE, OTHER | END 2020-09-10 09:17 | disposition home or self-care (01) | LOC: LAB.S 09:16 | PROVIDERS: ATTEND Internal Medicine | DX: I48.91 Unspecified atrial fibrillation (principal); Z79.01 Long term (current) use of anticoagulants | CPT/HCPCS: 85610 ==

== ENCOUNTER 2020-10-07 09:33 | Outpatient (CLI) | payer MEDICARE, OTHER | END 2020-10-07 09:34 | disposition home or self-care (01) | LOC: LAB.S 09:33 | PROVIDERS: ATTEND Internal Medicine | DX: I48.91 Unspecified atrial fibrillation (principal); Z79.01 Long term (current) use of anticoagulants | CPT/HCPCS: 36416; 85610 ==

== ENCOUNTER 2020-10-25 19:27 | Outpatient (CLI) | payer MEDICARE, OTHER | END 2020-10-25 19:28 | disposition EMS.NT | LOC: EMS 19:27 | DX: R06.02 Shortness of breath (principal) ==

== ENCOUNTER 2020-10-29 09:01 | Outpatient (CLI) | payer MEDICARE, OTHER ==
[2020-10-29 15:30] LABS: BASOPHILS % (AUTO) 0.7 %; EOSINOPHILS # (AUTO) 0.3 10^3/uL (0.0-0.7); EOSINOPHILS % (AUTO) 4.4 %; HCT - HEMATOCRIT 40.3 % (42.0-52.0); HGB - HEMOGLOBIN 12.8 g/dL (14.0-18.0); LYMPHOCYTES % (AUTO) 17.5 %; MEAN CORPUSCULAR HEMOGLOBIN 30.5 pg (27.0-31.0); MEAN CORPUSCULAR HGB CONC 31.8 g/dL (32.0-36.0); MEAN CORPUSCULAR VOLUME 96.2 fL (80.0-94.0); MEAN PLATELET VOLUME 11.2 fL (7.4-11.4); MONOCYTES # (AUTO) 0.5 10^3/uL (0.0-1.0); MONOCYTES % (AUTO) 9.2 %; NEUTROPHILS # (AUTO) 3.9 10^3/uL (1.5-6.6); NEUTROPHILS % (AUTO) 67.8 %; PLT - PLATELET COUNT 201 10^3/uL (130-450); RED BLOOD COUNT 4.19 10^6/uL (4.70-6.10); RED CELL DISTRIBUTION WIDTH 13.2 % (12.0-15.0); WHITE BLOOD COUNT 5.7 x10^3/uL (4.8-10.8)
[2020-10-29 15:49] LABS: CREATININE 1.1 mg/dL (0.6-1.2); POTASSIUM 4.4 mmol/L (3.5-5.0)
== END 2020-10-29 09:02 | disposition home or self-care (01) ==
LOC: LAB.S 09:01
PROVIDERS: ATTEND Emergency Medicine
DX: R06.09 Other forms of dyspnea (principal); I48.91 Unspecified atrial fibrillation
CPT/HCPCS: 36415; 80048; 83880; 85025; 85610

== ENCOUNTER 2020-11-25 14:13 | Outpatient (CLI) | payer MEDICARE, OTHER | END 2020-11-25 14:14 | disposition home or self-care (01) | LOC: LAB.S 14:13 | PROVIDERS: ATTEND Internal Medicine | DX: I48.91 Unspecified atrial fibrillation (principal); Z79.01 Long term (current) use of anticoagulants | CPT/HCPCS: 36416; 85610 ==

== ENCOUNTER 2020-12-04 10:30 | Outpatient (CLI) | payer MEDICARE, OTHER | END 2020-12-04 10:31 | disposition home or self-care (01) | LOC: LAB.S 10:30 | PROVIDERS: ATTEND Internal Medicine | DX: I48.91 Unspecified atrial fibrillation (principal); Z79.01 Long term (current) use of anticoagulants | CPT/HCPCS: 36416; 85610 ==

== ENCOUNTER 2020-12-31 09:12 | Outpatient (CLI) | payer MEDICARE, OTHER | END 2020-12-31 09:13 | disposition home or self-care (01) | LOC: LAB.S 09:12 | PROVIDERS: ATTEND Internal Medicine | DX: I48.91 Unspecified atrial fibrillation (principal); Z79.01 Long term (current) use of anticoagulants | CPT/HCPCS: 36416; 85610 ==

== ENCOUNTER 2021-01-29 09:37 | Outpatient (CLI) | payer MEDICARE, OTHER | END 2021-01-29 09:38 | disposition home or self-care (01) | LOC: LAB.S 09:37 | PROVIDERS: ATTEND Internal Medicine | DX: I48.91 Unspecified atrial fibrillation (principal); Z79.01 Long term (current) use of anticoagulants | CPT/HCPCS: 36416; 85610 ==

== ENCOUNTER 2021-02-05 09:58 | Outpatient (CLI) | payer MEDICARE, OTHER | END 2021-02-05 09:59 | disposition home or self-care (01) | LOC: LAB.S 09:58 | PROVIDERS: ATTEND Internal Medicine | DX: I48.91 Unspecified atrial fibrillation (principal); Z79.01 Long term (current) use of anticoagulants | CPT/HCPCS: 36416; 85610 ==

== ENCOUNTER 2021-02-15 08:40 | Outpatient (CLI) | payer MEDICARE, OTHER | END 2021-02-15 08:41 | disposition EMS.NT | LOC: EMS 08:40 | DX: Z04.3 Encounter for examination and observation following other accident (principal); Z79.01 Long term (current) use of anticoagulants ==

== ENCOUNTER 2021-02-15 13:38 | Emergency (ER) | payer MEDICARE, OTHER ==
--- NOTE | 2021-02-15 14:27 | XRAY Report ---
PROCEDURE: Chest 2 View X-Ray INDICATIONS: fell , now with right rib, +warfarin TECHNIQUE: 2 view(s) of the chest. COMPARISON: 09/18/2019, 11/08/2016, 07/02/2016 FINDINGS: Surgical changes and devices: None. Lungs and pleura: No pleural effusions or pneumothorax. Lungs are clear, yet hyperexpanded. Mediastinum: The aorta is prominent and tortuous. The cardiac contours are within normal limits. T here is a small to moderate hiatal hernia. Bones and chest wall: No suspicious bony abnormalities. Age-appropriate degenerative changes are see n. No displaced right-sided rib fractures are seen. Remote left lateral rib fractures are seen inferi lester. Soft tissues appear unremarkable. IMPRESSION: No displaced right-sided rib fractures are seen. No pneumothorax. Hyperexpanded lungs again seen. Reviewed by: David Duran MD on 02/15/2021 1:25 PM [facility] Approved by: David Duran MD on 02/15/2021 1:25 PM [facility] Station ID: [id number]
--- NOTE | 2021-02-15 14:54 | ED Physician Documentation ---
PD HPI BACK PAIN - Stated complaint Stated Complaint: BACK PX/FALLS - Chief complaint Chief Complaint: Resp - History obtained from History obtained from: Patient - History of Present Illness Timing - onset: Yesterday Timing - duration: Days (1) Timing - details: Abrupt onset Location: Mid, Right Quality: Pain (The patient was moving some furniture yesterday and the corner of it shifted and struck into his right posterolateral ribs. Pain at the time. It worsened today when he slipped and reached for a bar in the shower pulling the muscles.) Associated symptoms: No: Fever, Weakness, Numbness Improves with: Position Worsened by: Movement, Twisting Contributing factors: Trauma (struck by edge of furniture yesterday.) Similar symptoms before: Has not had sx before Recently seen: Not recently seen Review of Systems Constitutional: denies: Fever, Chills Nose: denies: Rhinorrhea / runny nose, Congestion Throat: denies: Sore throat Respiratory: denies: Cough Skin: denies: Abrasion (s), Laceration (s) Neurologic: denies: Focal weakness, Numbness, Altered mental status, Headache, Head injury PD PAST MEDICAL HISTORY - Past Medical History Cardiovascular: Hypertension, Atrial fibrillation Respiratory: None Endocrine/Autoimmune: None GI: None : Benign prostate hypertrophy HEENT: Dental implants Psych: Anxiety, Claustrophobia Musculoskeletal: Osteoarthritis Derm: None, Other - Past Surgical History Past Surgical History: No General: Cholecystectomy, Other HEENT: Cataracts Derm: Skin cancer surgery - Present Medications Home Medications: Ambulatory Orders Medication Instructions Recorded Confirmed Carvedilol 25 mg PO 11/08/16 Warfarin [Coumadin] 0 mg PO 1400 11/08/16 11/08/16 levETIRAcetam [Keppra] 0 mg PO 11/08/16 lisinopriL [Lisinopril] 5 mg PO 11/08/16 HYDROcod/ACETAM 5/325 [[place] 5/325] 1 ea PO Q6H PRN #8 tablet 02/15/21 - Allergies Allergies/Adverse Reactions: Allergies Allergy/AdvReac Type Severity Reaction Status Date / Time shellfish derived Allergy Severe Emesis/Diar Verified 02/15/21 14:05 breann procaine Allergy Intermediate Swelling Verified 02/15/21 14:05 diltiazem AdvReac Intermediate Hypotension Verified 02/15/21 14:05 bee stings Allergy Severe Anaphylaxis Uncoded 02/15/21 14:05 salmon AdvReac Severe Emesis/Diar Uncoded 02/15/21 14:05 breann shrimp AdvReac Severe Emesis/Diar Uncoded 02/15/21 14:05 breann - Social History Does the pt smoke?: No Smoking Status: Never smoker Does the pt drink ETOH?: No Does the pt have substance abuse?: No - Immunizations Immunizations are current?: Yes - POLST Patient has POLST: No PD ED PE NORMAL - Vitals Vital signs reviewed: Yes - General General: Alert and oriented X 3, Well developed/nourished, Other (appears uncomfortable with trunk movement and right shoulder ROM. ) - HEENT HEENT: Atraumatic - Neck Neck: Supple, no meningeal sign, No bony TTP - Cardiac Cardiac: RRR, No murmur - Respiratory Respiratory: Clear bilaterally - Abdomen Abdomen: Soft, Other (He does have some tenderness in the right upper quadrant. Also tender in the right posterolateral ribs and chest wall. No obvious crepitance or deformity. Some CVA tenderness.) - Back Back: No spinal TTP - Derm Derm: Normal color, Warm and dry - Neuro Neuro: Alert and oriented X 3, No motor deficit, No sensory deficit, Normal speech Results - Vitals Vitals: Oxygen O2 Source [] Room air O2 Source [] Room air O2 Source Room air - Labs Labs: Laboratory Tests 02/15/21 02/15/21 02/15/21 15:15 15:15 15:15 WBC 7.8 RBC 4.11 L Hgb 12.9 L Hct 39.3 L MCV 95.6 H MCH 31.4 H MCHC 32.8 RDW 13.2 Plt Count 173 MPV 9.6 Neut # (Auto) 5.4 Lymph # (Auto) 1.2 L [place] # (Auto) 1.0 Eos # (Auto) 0.2 Baso # (Auto) 0.0 Absolute Nucleated RBC 0.00 Nucleated RBC % 0.0 PT 29.2 H INR 2.6 H Sodium 136 Potassium 4.3 Chloride 99 L Carbon Dioxide 30 Anion Gap 7.0 BUN 26 H Creatinine 1.0 Estimated GFR (MDRD) 71 L Glucose 112 H Calcium 9.2 Total Bilirubin 0.7 AST 22 ALT 16 Alkaline Phosphatase 72 Total Protein 7.1 Albumin 4.2 Globulin 2.9 Albumin/Globulin Ratio 1.4 Lipase 34 - Rads (name of study) chest/abd/pelvic CT Radiology: Prelim report reviewed (NO noted rib fractures nor organ injury. ), See rad report PD MEDICAL DECISION MAKING - ED course Complexity details: reviewed results (no acute injuries), re-evaluated patient, considered differential (He was struck by heavy piece of furniture in the right ribs yesterday and still hurting and more today. He is on Coumadin. Plain chest x-ray appears normal but I have concern for organ injury as well so we will get a CT scan.), d/w patient Departure - Departure Disposition: Home, Self Care Clinical Impression: Chest wall contusion Qualifiers: Encounter type: initial encounter Laterality: right Qualified Code(s): S20.211A - Contusion of right front wall of thorax, initial encounter Condition: Stable Record reviewed to determine appropriate education?: Yes Instructions: ED Contusion Chest Wall Follow-Up: Angus Avilez MD [Primary Care Provider] - Prescriptions: HYDROcod/ACETAM 5/325 [[place] 5/325] 1 ea PO Q6H PRN #8 tablet PRN Reason: Pain Comments: Your x-ray and then CT scans do not show any signs of rib fractures, lung/kidney/liver injury. This seems to be just some bruising of the chest wall and will be sore likely for several days or so. Tylenol every 4-6 hours if needed for pain. Use hydrocodone if needed for worse pain in the short-term. I would not anticipate needing this beyond a couple of days. Recheck if not generally improved over the next several days and resolved by 3 to 5 days or so. I transmitted a prescription to [facility] in [place] if you need further medication. I am prescribing a short course of narcotic pain medication for you. These are potentially dangerous and addictive medications that should be used carefully. These medications may constipate you. Take an ryxx-gbq-brkpafa stool softener such as docusate twice daily with plenty of water while taking these medications. If you go 24 hours without a bowel movement, take [id number] MiraLAX, per package instructions. Do not drink or drive while taking these medications. If you received narcotic or sedating medications while in the emergency department do not drive for 24 hours. Store this medication in a safe, secure place and out of reach of children. It is a violation of federal law to give or sell this medication to another person or to use in a manner other than prescribed. The ED will not refill narcotic prescriptions, including prescriptions lost or stolen. You can dispose of unwanted medications at the [facility]'s office or at several pharmacies such as [facility]. Discharge Date/Time: 02/15/21 18:09
[2021-02-15] MEDS ORDERED: SODIUM CHLORIDE 0.9% 1,000 ML IV STA (15:04)
[2021-02-15] MEDS ORDERED: MORPHINE 2 MG/ML CARPUJECT IVP STA (15:04)
[2021-02-15] MEDS ORDERED: KETOROLAC 15 MG/ML VIAL IVP STA (15:04)
[2021-02-15 15:07] VITALS: BP 100/57
[2021-02-15] MEDS ORDERED: IOPAMIDOL-300 100 ML VIAL ONE (15:14)
[2021-02-15 15:29] LABS: INR 2.6 (0.8-1.2); PT - PROTHROMBIN TIME 29.2 secs (9.9-12.6)
[2021-02-15 15:41] LABS: BASOPHILS % (AUTO) 0.3 %; EOSINOPHILS # (AUTO) 0.2 10^3/uL (0.0-0.7); EOSINOPHILS % (AUTO) 2.7 %; HCT - HEMATOCRIT 39.3 % (42.0-52.0); HGB - HEMOGLOBIN 12.9 g/dL (14.0-18.0); LYMPHOCYTES # (AUTO) 1.2 10^3/uL (1.5-3.5); LYMPHOCYTES % (AUTO) 15.3 %; MEAN CORPUSCULAR HEMOGLOBIN 31.4 pg (27.0-31.0); MEAN CORPUSCULAR HGB CONC 32.8 g/dL (32.0-36.0); MEAN CORPUSCULAR VOLUME 95.6 fL (80.0-94.0); MEAN PLATELET VOLUME 9.6 fL (7.4-11.4); MONOCYTES % (AUTO) 12.2 %; NEUTROPHILS # (AUTO) 5.4 10^3/uL (1.5-6.6); NEUTROPHILS % (AUTO) 69.1 %; PLT - PLATELET COUNT 173 10^3/uL (130-450); RED BLOOD COUNT 4.11 10^6/uL (4.70-6.10); RED CELL DISTRIBUTION WIDTH 13.2 % (12.0-15.0); WHITE BLOOD COUNT 7.8 x10^3/uL (4.8-10.8)
[2021-02-15 15:51] LABS: ALBUMIN 4.2 g/dL (3.2-5.5); ALBUMIN/GLOBULIN RATIO 1.4 (1.0-2.2); BILIRUBIN,TOTAL 0.7 mg/dL (0.2-1.0); CALCIUM 9.2 mg/dL (8.5-10.3); POTASSIUM 4.3 mmol/L (3.5-5.0); TOTAL PROTEIN 7.1 g/dL (6.7-8.2)
[2021-02-15] MEDS ORDERED: HYDROcod/ACET 5/325 Prepack 4 PO STA (17:41)
--- NOTE | 2021-02-16 06:57 | CT Report ---
PROCEDURE: CHEST WO INDICATIONS: STRUCK RIGHT FLANK/RIBS, PAIN TECHNIQUE: Noncontrast images were acquired from the pulmonary apices to the posterior costophrenic angles. Mul tiplanar MIP reformats were then acquired. For radiation dose reduction, the following was used: au tomated exposure control, adjustment of mA and/or kV according to patient size. COMPARISON: Correlation is made with the accompanying abdomen pelvis CT, 02/15/2021. FINDINGS: Image quality: Excellent. Lungs and pleura: No acute air space opacities. No pleural effusions or pneumothorax. Central and peripheral airways are patent and normal in caliber. Mediastinum: Heart size is normal. No pericardial effusion. No mediastinal adenopathy by size crit eria. Thoracic aorta and central pulmonary arteries are normal in size. At least moderate coronary a rtery calcification can be seen. Moderate calcification can be seen of the aortic arch and proximal g reat vessels. Incidental note is made of a common trunk off of the aorta of the right brachiocephalic artery and the left common carotid artery (bovine type aortic arch). This is considered to be a deve lopmental variant of typically no clinical consequence. Esophagus is normal in caliber. There is a small hiatal hernia. Bones and chest wall: No suspicious bony lesions. No vertebral body compression fractures. Age-appr opriate degenerative changes are seen. No axillary or supraclavicular adenopathy by size criteria. The thyroid is normal in size and there are no incidental findings. Abdomen: Biliary gas can be seen within the upper abdomen. Please see the accompanying abdomen and pe lvis CT report. There is an atrophic left kidney. The visualized portions of the upper abdominal stru ctures are otherwise within normal limits. IMPRESSION: Negative for rib fracture. Incidental note is made of: Small hiatal hernia At least moderate coronary artery calcification Reviewed by: David Duran MD on 02/15/2021 4:01 PM [facility] Approved by: David Duran MD on 02/15/2021 4:01 PM [facility] Station ID: [id number]
--- NOTE | 2021-02-16 06:57 | CT Report ---
PROCEDURE: Abdomen/Pelvis WO INDICATIONS: STRUCK RIGHT FLANK/RIBS, PAIN TECHNIQUE: Noncontrast 5 mm thick sections acquired from the diaphragms to the symphysis. 5 mm coronal and sagi ttal reformats were then performed. For radiation dose reduction, the following was used: automated exposure control, adjustment of mA and/or kV according to patient size. COMPARISON: Correlation is made with the accompanying chest CT, 02/15/2021. FINDINGS: Image quality: Excellent. ABDOMEN: Lung bases: Lung bases are clear. Heart size is normal. At least moderate coronary artery calcific ation is seen. Solid organs: The liver demonstrates normal size. A moderate amount of biliary gas can be seen, inclu ding within the common bile duct. The common bile duct is prominent, measuring 1.9 cm. Gallbladder walter s been removed. Pancreas is normal in contours. No significant splenic abnormality can be seen. No adrenal nodules. The right kidney is unremarkable, without stones or hydronephrosis. The left kidney is atrophic. Ther e is prominence of the left renal pelvis seen. No carrie hydroureter can be seen on either side. Peritoneum and bowel: Unenhanced bowel loops demonstrate normal wall thickness and caliber. No free fluid or air. Diverticulosis can be seen, without carrie findings of active diverticulitis. Nodes and vessels: No retroperitoneal or mesenteric adenopathy by size criteria. Aorta and inferior vena cava are normal in caliber. Atherosclerotic calcification is seen. Miscellaneous: No ventral hernias. PELVIS: Genitourinary: Bladder wall thickness is normal. Miscellaneous: No inguinal hernias or adenopathy. Bones: No suspicious bony lesions. No vertebral body compression fractures. S-shaped scoliotic cur vature is incidentally noted. Age-appropriate degenerative changes are seen. IMPRESSION: No acute posttraumatic abnormality can be seen. The right kidney and right ribs are unremarkable. Atrophic left kidney, with prominence of the left renal pelvis. Status post cholecystectomy, biliary gas seen. The common bile duct is prominent and measures up to 1 .9 cm. Incidental note is made of: At least moderate coronary artery calcification S-shaped sclerotic curvature Diverticulosis is, without findings of active diverticulitis. Reviewed by: David Duran MD on 02/15/2021 3:58 PM [facility] Approved by: David Duran MD on 02/15/2021 3:58 PM [facility]AR[facility] Station ID: [id number]
== END 2021-02-15 18:09 | disposition home or self-care (01) ==
LOC: ED 13:38
DX: S20.211A Contusion of right front wall of thorax, initial encounter (principal); W22.8XXA Striking against or struck by other objects, initial encounter; Y93.89 Activity, other specified; W18.30XA Fall on same level, unspecified, initial encounter; Y93.E1 Activity, personal bathing and showering; Y92.002 Bathroom of unspecified non-institutional (private) residence as the place of occurrence of the external cause
CPT/HCPCS: 36415; 80053; 83690; 85025; 85610; 96361; 96374; 96375; 99284

== ENCOUNTER 2021-05-27 14:30 | Outpatient (CLI) | payer MEDICARE, OTHER ==
--- NOTE | 2021-05-27 21:18 | CONSULTATION NOTE ---
Palliative Care Consultation - Referral Referring Provider: Dr. Angus Avilez Time of Visit: [id number] Referral setting: Home Referral Reason: Dementia behavioral disturbances/anxiety/FTT - Information Sources Records reviewed: Previous records reviewed History/Review of Systems obtained from: Patient, Family ( Aliyah) Exam limitations: Clinical condition (Patient with moderate dementia; poor recall but can engage in conversation) - History of Present Illness Brief History of Present Illness: This is an 89-year-old gentleman who goes by "Harrison", who presents with dementia with behavioral disturbances. His neuropsychiatric behaviors are mostly centered around his significant anxiety, which triggers breathlessness for patient, and much distress for his in the context the patient always "wants a pill". She has been using mirtazapine 15 mg up to 4 times a day, she feels like it does help some, but is aware she is not to be using more than 3 tabs. He has been trialed on clonazepam, but no other medications. He does have some paranoia and delusions, but is very perseverative, but for the most part is oriented to person and place. He was a fairly "stubborn" man when he was without memory issues, and this has been exacerbated. She does not challenge him at all, but does find his behaviors difficult. Of note he has been having increased functional decline over the last several weeks, is ambulatory with a rolling walker, but spends most the time in the recliner. The other thing of note is he had significant weight loss, he weighed in at the physician's office at 141 this week, at ED visit he was 167. When asked him about this, he denies abdominal pain, but does describe early satiety, and reports difficulty with food preferences and often refuses meals. She reports has observed him just holding particular liquids in his mouth, I did ask him to demonstrate taking a swallow to make sure he was not choking. And he did indeed hold for several seconds, until commanded to swallow. When asked patient about anxiety. He is unable to identify underlying concerns, though does feel he gets quite short of breath, he is in the recliner, with a weighted blanket and quite "wiggly" with random leg movements reports has had this for about 3 years since gallbladder surgery. He has long-term had pruritus, no rash, most recently has been controlled with hydroxyzine 10 mg at bedtime, and occasionally a.m. or midday if exacerbated. He has seen dermatology, and has tried multiple topicals but without any relief. reports patient does lose his balance at times and falls backwards. He has recently had a trip to the ED on 02/15 with right rib contusion, did have a chest x-ray and CT scan without any findings. Though today on exam he does have decreased right breath sounds and some mixed upper airway wheezes/crackles and diminished bases. His O2 sats are fine, he does not present with any cough. She does use a fan and try and distract him. In trying to tease out whether patient would benefit more from an antipsychotic or antianxiety, she does feel like it is baseline anxiety.With most recent fall, he has been discontinued off his Coumadin for his atrial fib. 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 Support System: Patient is from [place], with a cm. 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 He and very have been for 40 years, this is a second marriage for both of them. He was 25 years before this, does have 3 children though they are in not involved in his care. He has a son in [place], who calls and keeps in touch, he has not heard from his younger daughter Marianela in 20 years, and most recently after 30 years had spoken to his eldest daughter who is currently in some way home he is does have a daughter who does come in his system every other week. She has recently contacted a caregiver Kyleigh, [employer], but requires a minimum of 4 hours, and has only had for a couple times. 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 Family History - Family History Family History: Mother: (both of old age), Father: Medications/Allergies - Medications Home Medications: Ambulatory Orders Medication Instructions Recorded Confirmed Carvedilol 12.5 mg PO BID 11/08/16 05/27/21 Alprazolam [Xanax] 0.25 mg PO TID PRN MDD 6 tabs 05/27/21 05/27/21 Mirtazapine 15 mg PO .1 TAB AM 2 @ HS 05/27/21 05/27/21 hydrOXYzine HCL [Hydroxyzine HCl] 10 mg PO Q4HR PRN 05/27/21 05/27/21 - Allergies Allergies/Adverse Reactions: Allergies Allergy/AdvReac Type Severity Reaction Status Date / Time shellfish derived Allergy Severe Emesis/Diar Verified 02/15/21 14:05 breann procaine Allergy Intermediate Swelling Verified 02/15/21 14:05 diltiazem AdvReac Intermediate Hypotension Verified 02/15/21 14:05 bee stings Allergy Severe Anaphylaxis Uncoded 02/15/21 14:05 salmon AdvReac Severe Emesis/Diar Uncoded 02/15/21 14:05 breann shrimp AdvReac Severe Emesis/Diar Uncoded 02/15/21 14:05 breann Review of Systems - Constitutional Constitutional: reports: Fatigue (persistent and worsening), Weakness, Poor appetite, Weight loss (141 at MD this last week; 167 at ED visit in January). denies: Fever - Eyes Eyes: reports: Vision loss - Ears, Nose & Throat Ears, Nose & Throat: reports: Hearing loss, Dry mouth - Cardiovascular Cardiovascular: reports: Lightheadedness, Exertional dyspnea, Decr. exercise tania erance - Respiratory Respiratory: reports: SOB at rest (at times), SOB with exertion. denies: Cough - Gastrointestinal Gastrointestinal: reports: Poor appetite, Early satiety. denies: Constipation - Genitourinary Genitourinary: reports: Frequency - Musculoskeletal Musculoskeletal: reports: Stiffness, Muscle weakness, Assistive devices (has rolling walker/cane) - Integumentary Integumentary: reports: Pruritis, Dryness. denies: Rash - Neurological Neurological: reports: General weakness, Memory problems - Psychiatric Psychiatric: reports: Depression, Anxiety, Delusions, Behavior disturbances (mild agitation; "stubborness" needs to be redirected; perserverative) - Endocrine Endocrine: reports: Hypothyroidism, Intolerance to cold - All Other Systems All Other Systems: reports: Other (limited by what patient can recall; ROS mostly from ) Physical Exam - Vital Signs Temperature: 97.5 C Pulse Rate: 63 Respiratory Rate: 18 O2 Saturation: 93 (ra @ rest) Blood Pressure: 122/76 - Physical Exam General Appearance: positive: No acute distress, Alert, Anxious Eyes Bilateral: positive: Normal inspection, No scleral icterus Neck: positive: Trachea midline Cardiovascular: positive: Irregularly irregular Respiratory: positive: Diminished in bases, Other (decreased RLL with fine exp crackles upper lobe). negative: Wheezes Abdomen: positive: Non-tender, Soft Skin: positive: Dryness. negative: Rash Extremities: positive: No pedal edema (but has cowboy boots on; diff to assess) Neurologic/Psychiatric: positive: Disoriented to time, Weakness, Depressed mood/affect, Flat affect Palliative Care - POLST Patient has POLST: Yes POLST Status: DNR, Comfort Measures (filled out by patient 12/[address] Avilez) Pain: No pain Feelings of wellbeing/Perceived Quality of Life: Fair, Worsening Sleep: Variable sleep pattern (up sometimes wandering; but usually sleeps through night; patient perceives sleeps well; describes RLS) Constipation: No Performance Status: Patient has been having declining functional status, spending more time in the Recliner. He is walking only to his bedroom and to the bathroom and kitchen. He did have physical therapy, but was unable to really follow through with any of the exercises. He is quite weak and shaky, continues to be high risk for falls.Only days once a week, she does help dry his back, he does assist with dressing as needed, but patient still remains mostly independent in his ADLs. She does do meal prep, but is able to feed himself. - Palliative Care Discussion: Patient with very little insight into his current condition, is unable to really express why he is not eating though he notes that this is not good. He does describe feeling quite anxious and short of breath, and is getting exhausted with his ongoing anxiety and behaviors. She is feeling somewhat torn as far as being able to leave him even for short periods of time, he pretty much refuses to go with her. Particularly since he cannot drive, though he does not have any insight why this is so. Did speak with about considering more respite, though course with current Covid there is very little places to go, but is wondering how much longer she can manage him at home. Her goals are to focus on comfort, not to extend either one of their lives with any life extending therapies, and to diminish suffering. She does perceive he is having a difficult time, and poor quality of life with his worsening anxiety. She does try to redirect and distract, but he is quite stubborn and set in his ways. So far this is not led to any altercations, the patient is at high risk for falls. Patient is quite resistant to encouragement from eating and drinking, thus is continue to lose weight, she is trying multiple different strategies. We did discuss the risk of adding a benzodiazepine back in, but feels this outweighs the burden in the context of his current anxiety state. Patient does have a POLST with DNR/DNI and comfort measures, this was filled out in 2015, feels that this is consistent with things he is expressed in the past. Impression and Recommendations - Palliative Care Impression: This is an 89-year-old gentleman with dementia and behavioral disturbances, his neuropsychiatric behaviors manifest specifically in escalating anxiety, does experience somewhat of a "panic" and dyspnea, has had functional and cognitive decline, as well is now significant weight loss. Goals are to focus on comfort, and quality of life issues with avoiding hospitalization and keeping patient at home for as long as possible. Palliative care providing support for patient and and home setting and anticipatory guidance. Recommendations/Counseling Done: 1.Anxiety. This appears multifactorial, does appear to manifest itself with increased nervousness, dyspnea, and leads to is somewhat of almost panic attack. does try to redirect and distract. She has been fairly desperate and using the mirtazapine more frequently. Patient has been getting between Some45 and 60 mg of mirtazapine daily. Instructed dosing is 45 mg, instructed to give 15 mg a.m. and 30 mg at at bedtime. After much discussion weighing benefits and burdens we will go ahead and initiate alprazolam 0.25 mg up to 3 times daily, can increase dosing if ineffective. She will contact me for any questions. We will do a check in next week. 2. Pruritus unspecified. Patient has had this long-term, currently on hydroxyzine though may be adding to his symptoms. Does find this effective at this time, topicals have not been. Does exacerbate along sometimes with anxiety. No rash is demonstrated. If worsens, they have not trialed pregabalin or gabapentin, could at this if needed. 3. Dementia with behavioral disturbances. Patient continues to decline both functionally and cognitively, high risk of falls. is currently managing though most likely will need placement eventually. She would like to keep him home and comfortable as long as possible, as well as avoid hospitalization. She is using cognitive behavioral techniques every directing and distraction, though patient can be "quite stubborn" she does not feel unsafe. 4. Weight loss. Patient has had a fairly dramatic decrease in his weight over the last few months, patient is unable to identify why he has early satiety denies pain, heartburn, or constipation. works very hard to encourage him to eat and drink, they are using some instant breakfast. Patient does not like to drink, is actually pocketing some. We discussed using protein bars or high caloric meal supplements. She will continue to work though goal is for quality of life not necessarily quantity of life. 5. Generalized weakness. Patient continues to decline physically, is at high risk for falls. Will obtain lift assist number for . They have had physical therapy, patient is not interested in engaging in has continued to have functional decline. 6.Dyspnea. This is multifactorial, unclear if this is anxiety related or if patient may have some underlying cause. He does have decreased breath sounds in his right lower lobe and does get quite short of breath with any kind of movement. His O2 sats are fine, will rule out with chest x-ray as patient did have a fall on his right side, though did not manifest any abnormalities at the time may have developed something in the meantime. It is currently snowy, will take him to outpatient clinic when weather improves 7. Advanced care planning. We will continue to monitor, patient with weight loss, functional and cognitive decline, no recent infections. Though has had a fall. We will go ahead and monitor and transition to hospice when appropriate though patient does not have any "terminal illness" that at this point in time brings him into the 6-month trajectory. Patient does have a POLST with comfort measures, would like to avoid hospitalization. 75 minutes with greater than 50% of this time in counseling regarding management and disease trajectory of dementia, management and risks and burdens of management of anxiety, introduction of palliative care and development of rapport and anticipatory guidance
== END 2021-05-27 14:31 | disposition home or self-care (01) ==
LOC: PC 14:30
PROVIDERS: ATTEND Nurse Practitioner Adult Health
DX: Z51.5 Encounter for palliative care (principal); F03.91 Unspecified dementia, unspecified severity, with behavioral disturbance; F41.9 Anxiety disorder, unspecified; R06.02 Shortness of breath; L29.9 Pruritus, unspecified; R53.1 Weakness; R68.81 Early satiety; R63.4 Abnormal weight loss; Z79.899 Other long term (current) drug therapy; Z74.09 Other reduced mobility; Z91.81 History of falling; Z66 Do not resuscitate
CPT/HCPCS: 99345

== ENCOUNTER 2021-06-05 14:10 | Outpatient (CLI) | payer MEDICARE, OTHER ==
--- NOTE | 2021-06-05 14:45 | XRAY Report ---
PROCEDURE: Chest 2 View X-Ray INDICATIONS: SOB TECHNIQUE: 2 view(s) of the chest. COMPARISON: February 15, 2021 FINDINGS: SUPPORT DEVICES: None. LUNGS/PLEURA: Minimal left basal atelectasis. The remaining lung zones well aerated. No pleural effus ion or space-occupying pneumothorax. MEDIASTINUM: The cardiomediastinal silhouette is within normal limits. BONES/SOFT TISSUES: No acute abnormality. IMPRESSION: 1.Minimal left basal atelectasis. Reviewed by: Henok Bowden MD on 06/05/2021 2:44 PM PST Approved by: Henok Bowden MD on 06/05/2021 2:44 PM PST Station ID: [id number]
== END 2021-06-05 14:11 | disposition home or self-care (01) ==
LOC: DI.S 14:10
PROVIDERS: ATTEND Nurse Practitioner Adult Health
DX: J98.11 Atelectasis (principal)

== ENCOUNTER 2021-06-19 10:00 | Outpatient (CLI) | payer MEDICARE, OTHER ==
--- NOTE | 2021-06-19 13:14 | CONSULTATION NOTE ---
Palliative Care Follow Up - Referral Time of Visit: 03-10 Social History - Living Situation Living arrangement: At home Living Situation: With spouse/s.o. Medications/Allergies - Medications Home Medications: Ambulatory Orders Medication Instructions Recorded Confirmed Carvedilol 12.5 mg PO BID 11/08/16 05/27/21 Alprazolam [Xanax] 0.25 mg PO TID PRN MDD 6 tabs 05/27/21 05/27/21 Mirtazapine 15 mg PO .1 TAB AM 2 @ HS 05/27/21 05/27/21 hydrOXYzine HCL [Hydroxyzine HCl] 10 mg PO Q4HR PRN 05/27/21 05/27/21 - Allergies Allergies/Adverse Reactions: Allergies Allergy/AdvReac Type Severity Reaction Status Date / Time shellfish derived Allergy Severe Emesis/Diar Verified 02/15/21 14:05 breann procaine Allergy Intermediate Swelling Verified 02/15/21 14:05 diltiazem AdvReac Intermediate Hypotension Verified 02/15/21 14:05 bee stings Allergy Severe Anaphylaxis Uncoded 02/15/21 14:05 salmon AdvReac Severe Emesis/Diar Uncoded 02/15/21 14:05 breann shrimp AdvReac Severe Emesis/Diar Uncoded 02/15/21 14:05 breann Review of Systems - Constitutional Constitutional: reports: Fatigue (persistent and worsening), Weakness, Poor appetite, Weight loss (141 at MD this last week; 167 at ED visit in January). denies: Fever - Eyes Eyes: reports: Vision loss - Ears, Nose & Throat Ears, Nose & Throat: reports: Hearing loss, Dry mouth - Cardiovascular Cardiovascular: reports: Lightheadedness, Exertional dyspnea, Decr. exercise tolerance - Respiratory Respiratory: reports: SOB at rest (at times), SOB with exertion. denies: Cough - Gastrointestinal Gastrointestinal: reports: Poor appetite, Early satiety. denies: Constipation - Genitourinary Genitourinary: reports: Frequency - Musculoskeletal Musculoskeletal: reports: Stiffness, Muscle weakness, Assistive devices (has rolling walker/cane) - Integumentary Integumentary: reports: Pruritis, Dryness. denies: Rash - Neurological Neurological: reports: General weakness, Memory problems - Psychiatric Psychiatric: reports: Depression, Anxiety, Delusions, Behavior disturbances (mild agitation; "stubborness" needs to be redirected; perserverative) - Endocrine Endocrine: reports: Hypothyroidism, Intolerance to cold - All Other Systems All Other Systems: reports: Other (limited by what patient can recall; ROS mostly from ) Physical Exam - Physical Exam General Appearance: positive: No acute distress, Alert, Anxious Eyes Bilateral: positive: Normal inspection, No scleral icterus Neck: positive: Trachea midline Cardiovascular: positive: Irregularly irregular Respiratory: positive: Diminished in bases, Other (decreased RLL with fine exp crackles upper lobe). negative: Wheezes Abdomen: positive: Non-tender, Soft Skin: positive: Dryness. negative: Rash Extremities: positive: No pedal edema (but has cowboy boots on; diff to assess) Neurologic/Psychiatric: positive: Disoriented to time, Weakness, Depressed mood/affect, Flat affect
--- NOTE | 2021-06-19 16:37 | CONSULTATION NOTE ---
Palliative Care Follow Up - Referral Referring Provider: Dr. Angus Avilez Time of Visit: 03-10 Referral setting: Home Referral Reason: Dementia with behavioral disturbances/Pruitis/anxiety - Information Sources Records reviewed: Previous records reviewed History/Review of Systems obtained from: Patient, Family ( Aliyah present) Exam limitations: Clinical condition (patient with dementia; STM deficits; can participate in the moment) - History of Present Illness Update Brief HPI Update: This is an 89-year-old gentleman who goes by "Harrison", who presents with dementia with behavioral disturbances. His neuropsychiatric behaviors are mostly centered around his significant anxiety, which triggers breathlessness for patient, and much distress for his . feels the alprazalom has been very helpful, only needing a few times a week. She also is using the Mirtazipine correctly, getting better sleep. In exploring further today, he also has periods of agitation, paranoia and delusions, and hypersexuality with masturbation intermittently and inappropriate. This was more common, is less now only a few times a week. He is "fairly "stubborn man" very perseverative. He does get triggered by his episodes of pruritus, gets anxious about breathlessness, and has been having ongoing weight loss. Patient per changes have been continue to be quite sedentary, reports he is much quieter and withdrawn, and does spend most the time in the chair. She does describe he holds liquids in his mouth at the time, has not demonstrated any difficulty with choking or swallowing when he does finally swallow. Patient reports so he felt like he could not swallow last night, she reports this happens maybe twice a month. 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 . Past Medical History: Hypertension, atrial fib recently off Coumadin, shortness of breath, pulmonary hypertension, dementia, seizure disorder, RLS, TIA/stroke, BPH, dental implants, anxiety, claustrophobia, osteoarthritis, longstanding pruritus without a rash, surgeries include cholecystectomy, knee replacement, cataracts, skin cancer surgery Social History - Living Situation Living arrangement: At home Living Situation: With spouse/s.o. Support System: Patient is from [place], was a cm. 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 He and Aliyah have been for 40 years, this is a second marriage for them both. He was 25 years before this and does have 3 children though they are not involved in his care. 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 Medications/Allergies - Medications Home Medications: Ambulatory Orders Medication Instructions Recorded Confirmed Carvedilol 12.5 mg PO BID 11/08/16 05/27/21 Alprazolam [Xanax] 0.25 mg PO TID PRN MDD 6 tabs 05/27/21 05/27/21 Mirtazapine 15 mg PO .1 TAB AM 2 @ HS 05/27/21 05/27/21 hydrOXYzine HCL [Hydroxyzine HCl] 10 mg PO Q4HR PRN 05/27/21 05/27/21 - Allergies Allergies/Adverse Reactions: Allergies Allergy/AdvReac Type Severity Reaction Status Date / Time shellfish derived Allergy Severe Emesis/Diar Verified 02/15/21 14:05 breann procaine Allergy Intermediate Swelling Verified 02/15/21 14:05 diltiazem AdvReac Intermediate Hypotension Verified 02/15/21 14:05 bee stings Allergy Severe Anaphylaxis Uncoded 02/15/21 14:05 salmon AdvReac Severe Emesis/Diar Uncoded 02/15/21 14:05 breann shrimp AdvReac Severe Emesis/Diar Uncoded 02/15/21 14:05 breann Review of Systems - Constitutional Constitutional: reports: Fatigue (persistent and worsening), Weakness, Poor appetite, Weight loss (141 at MD this last week; 167 at ED visit in January; 153 today with heavy boots on). denies: Fever - Eyes Eyes: reports: Vision loss - Ears, Nose & Throat Ears, Nose & Throat: reports: Hearing loss, Dry mouth - Cardiovascular Cardiovascular: reports: Lightheadedness, Exertional dyspnea, Decr. exercise tolerance - Respiratory Respiratory: reports: SOB at rest (at times), SOB with exertion. denies: Cough - Gastrointestinal Gastrointestinal: reports: Poor appetite, Early satiety. denies: Constipation - Genitourinary Genitourinary: reports: Frequency - Musculoskeletal Musculoskeletal: reports: Stiffness, Muscle weakness, Assistive devices (has rolling walker/cane) - Integumentary Integumentary: reports: Pruritis, Dryness. denies: Rash - Neurological Neurological: reports: General weakness, Memory problems - Psychiatric Psychiatric: reports: Depression, Anxiety, Delusions, Behavior disturbances (mild agitation; "stubborness" needs to be redirected; perserverative) - Endocrine Endocrine: reports: Hypothyroidism, Intolerance to cold - All Other Systems All Other Systems: reports: Other (limited by what patient can recall; ROS mostly from ) Physical Exam - Vital Signs Temperature: 97.0 C Pulse Rate: 71 Respiratory Rate: 18 Blood Pressure: 108/68 - Physical Exam General Appearance: positive: No acute distress, Alert, Anxious (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 negative: Wheezes Abdomen: positive: Non-tender, Soft Skin: positive: Dryness. negative: Rash Extremities: positive: No pedal edema (but has cowboy boots on; diff to assess) Neurologic/Psychiatric: positive: Disoriented to time, Weakness, Depressed mood/affect, Flat affect Palliative Care - POLST Patient has POLST: Yes POLST Status: DNR, Comfort Measures (updated form; signed; no changes from patient's wishes;) Pain: No pain Feelings of wellbeing/Perceived Quality of Life: Fair, Worsening Sleep: Variable sleep pattern (sometimes gets up early and takes shower; RLS or prurities episodes impact sleep) Constipation: No Performance Status: Patient continues to have declining functional status, spending more time in the recliner. He walks to the bedroom, bathroom and kitchen. He is quite weak and shaky, uses walker for balance and strength. He is still able to bathe independently, does need some assistance with dressing. Aliyah does the meal prep, but patient is able to feed himself. - Palliative Care Discussion: Patient with very little insight into his current condition or his dementia. He is not really able to express any kind of distress. When asked what he worries about, he could not think of anything. Denies any concerns or worries. 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 Encouraged again to consider at least 1 respite day or 2 a month. We did review the POLST with DN AR and DNI and comfort measures. Did make it more robust she very much would like to avoid hospitalization, patient usually refuses to go if offered. Reviewed discussed with patient reports she do not think the patient ever thought he was going to . He has been very fearful of talking or being with elderly people. She does not perceive his current quality of life is good, nor would he if he understood his current condition.Did fill out new POLST with continued DN AR/DNI and comfort measures.. Results - Lab Results Lab results reviewed: Yes Impression and Recommendations - Palliative Care Impression: This is a 89-year-old gentleman with dementia and behavioral disturbances, with neuropsychiatric behaviors, specifically most problematic is his escalating anxiety, alprazolam has been a good intervention. Goals of care are to focus on comfort, quality of life issues and avoiding hospitalization. Palliative care providing support for patient and in home setting and anticipatory guidance. Recommendations/Counseling Done: 1. Anxiety. This appears to be multifactorial, manifests itself in increased nervousness, dyspnea, and translates into panic attacks. does try to redirect and distract, timing of mirtazapine with 30 at night and 50 in the morning has improved overall countenance. She has been using alprazolam 0.25 mg intermittently and appropriately, it has been effective. 2. Pruritus unspecified. Patient has had this long-term, currently on intermittent hydroxyzine though concerned it may be adding to his symptoms. No rash demonstrated. If worsens they have not trialed pregabalin or gabapentin, could find this is a helpful intervention 3. Dementia with behavioral disturbances. Did explore further some of 's reported neuropsychiatric behaviors particularly of hyper arousal/sexuality and paranoia/delusions. She reports looser less often and less intensity than previously, we did discuss could trial some quetiapine if worsens. She feels at this point in time she can manage with distraction etc., but is thankful to hear there might be something else to help dial it back. 4. Weight loss. Patient has had a fairly dramatic decrease in weight, reports early satiety, fluctuates as far as caloric intake. He has had some intermittent diarrhea, controlled with Pepto-Bismol. 5. Dyspnea this is multifactorial, most likely attributed to anxiety as well as underlying etiology of pulmonary hypertension, weakness, and deconditioning. X- ray showed no significant findings, O2 sats remained good. 5. Advanced care planning. We will continue to monitor patient's functional decline, cognitive decline, weight loss, patient with no recent infections or falls. Updated POLST with comfort measures, would like to avoid hospitalization and when the time is right to transition to hospice care 60 minutes with greater than 50% of this done in counseling regarding management of patient with dementia, expected decline, continuum of care, anticipatory guidance,Updated POLST
== END 2021-06-19 10:01 | disposition home or self-care (01) ==
LOC: PC 10:00
PROVIDERS: ATTEND Nurse Practitioner Adult Health
DX: Z51.5 Encounter for palliative care (principal); F03.91 Unspecified dementia, unspecified severity, with behavioral disturbance; F41.9 Anxiety disorder, unspecified; L29.9 Pruritus, unspecified; R63.4 Abnormal weight loss; R06.00 Dyspnea, unspecified; Z66 Do not resuscitate
CPT/HCPCS: 99350

== ENCOUNTER 2021-08-08 11:05 | Outpatient (CLI) | payer MEDICARE, OTHER ==
--- NOTE | 2021-08-08 14:06 | CONSULTATION NOTE ---
Palliative Care Follow Up - Referral Referring Provider: Dr. Angus Avilez Time of Visit: [id number] Referral setting: Home Referral Reason: Dementia with behavioral disturbances/Pruritis/Anxiety/GLF - Information Sources Records reviewed: Previous records reviewed History/Review of Systems obtained from: Patient, Family ( Aliyah) Exam limitations: Clinical condition (patient with moderate dementia/poor STM & insight) - History of Present Illness Update Brief HPI Update: This is an 89-year-old gentleman who goes by "Harrison", who presents with dementia with behavioral disturbances. His neuropsychiatric behaviors are centered around his significant anxiety, which triggers both breathlessness and suspect worsens his pruritus, this does provide much distress for his . He also has periods of agitation, paranoia and delusions and hypersexuality with masturbation intermittently and inappropriately. This continues to provide challenges for the . Patient has recently had a ground-level fall, patient when walking tends to "tipped backwards" and hit his head. He does have a fading area of broken blood vessels, no swelling, or tenderness. Reports no change in behavior, though certainly is high risk for a subdural hematoma, currently off all anticoags.Patient continues to be quite weak, spends most of his time in the recliner, but is still ambulatory, able to feed himself, and can be quite perseverative. Patient's weight is sitting around 141, has fluctuating anorexia. When he does not eat, she does use Ensure. Patient also has intermittent exacerbations of his pruritus, and needs extra hydroxyzine, currently has scheduled in the a.m. and p.m. Patient is ambulatory with a walker, showers once a week, and so far has been cooperative with . Past Medical History: Hypertension, atrial fib off Coumadin, shortness of breath, pulmonary hypertension, dementia, seizure disorder, RLS, TIA/stroke, BPH, dental implants, anxiety, claustrophobia, osteoarthritis, longstanding pruritus without rash, surgeries include cholecystectomy, knee replacement, cataracts, skin cancer surgery Social History - Living Situation Living arrangement: At home Living Situation: With spouse/s.o. Support System: Patient is from [place], was a cm. 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 He and Aliyah been 40 years this is a second marriage for both of them. He was 25 years before this and does have 3 children though they are not involved in his care. 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 The they still live on the family farm this was [place]. Aliyah has children who do check on her regularly, she is appropriately asking questions about long-term planning. Medications/Allergies - Medications Home Medications: Ambulatory Orders Medication Instructions Recorded Confirmed Carvedilol 12.5 mg PO BID 11/08/16 08/08/21 Alprazolam [Xanax] 0.25 mg PO TID PRN MDD 6 tabs 05/27/21 08/08/21 Mirtazapine 15 mg PO .1 TAB AM 2 @ HS 05/27/21 08/08/21 hydrOXYzine HCL [Hydroxyzine HCl] 10 - 20 mg PO Q4HR PRN 05/27/21 08/08/21 - Allergies Allergies/Adverse Reactions: Allergies Allergy/AdvReac Type Severity Reaction Status Date / Time shellfish derived Allergy Severe Emesis/Diar Verified 02/15/21 14:05 breann procaine Allergy Intermediate Swelling Verified 02/15/21 14:05 diltiazem AdvReac Intermediate Hypotension Verified 02/15/21 14:05 bee stings Allergy Severe Anaphylaxis Uncoded 02/15/21 14:05 salmon AdvReac Severe Emesis/Diar Uncoded 02/15/21 14:05 breann shrimp AdvReac Severe Emesis/Diar Uncoded 02/15/21 14:05 breann Review of Systems - Constitutional Constitutional: reports: Fatigue (persistent and worsening), Weakness, Poor appetite, Weight loss (141 at MD this last week; 167 at ED visit in January; 153 today with heavy boots on; 141 today without boots). denies: Fever - Eyes Eyes: reports: Vision loss, Other (c/o vision loss; saw eye MD has blepheritis but has not done the treatments; hates eye drops) - Ears, Nose & Throat Ears, Nose & Throat: reports: Hearing loss, Dry mouth - Cardiovascular Cardiovascular: reports: Lightheadedness, Exertional dyspnea, Decr. exercise tolerance - Respiratory Respiratory: reports: SOB at rest (at times), SOB with exertion. denies: Cough - Gastrointestinal Gastrointestinal: reports: Poor appetite, Early satiety. denies: Constipation - Genitourinary Genitourinary: reports: Frequency - Musculoskeletal Musculoskeletal: reports: Stiffness, Muscle weakness, Assistive devices (has rolling walker/cane) - Integumentary Integumentary: reports: Pruritis, Dryness. denies: Rash - Neurological Neurological: reports: General weakness, Memory problems, Incoordination (falls backwards when without walker) - Psychiatric Psychiatric: reports: Depression, Anxiety, Delusions, Behavior disturbances (mild agitation; "stubborness" needs to be redirected; perserverative) - Endocrine Endocrine: reports: Hypothyroidism, Intolerance to cold - All Other Systems All Other Systems: reports: Other (limited by what patient can recall; ROS mostly from ) Physical Exam - Vital Signs Temperature: 97.4 C Pulse Rate: 69 Respiratory Rate: 18 O2 Saturation: 97 Blood Pressure: 130/72 - Physical Exam General Appearance: positive: No acute distress, Alert Eyes Bilateral: positive: Normal inspection, No scleral icterus ENT: positive: No signs of dehydration Neck: positive: Trachea midline Cardiovascular: positive: Irregularly irregular Respiratory: positive: Diminished in bases, Other (decreased RLL). negative: Wheezes Abdomen: positive: Non-tender, Soft Skin: positive: Dryness. negative: Rash Neurologic/Psychiatric: positive: Disoriented to time, Weakness, Depressed mood/affect, Flat affect Palliative Care - POLST Patient has POLST: Yes POLST Status: DNR, Comfort Measures Pain: Pain improved, Location (had left hip/and right skull pain from fall one week ago, now resolved) Feelings of wellbeing/Perceived Quality of Life: Fair, Acceptable, Worsening (per 's perception; patient without insight) Sleep: Variable sleep pattern (depending on pruritis) Constipation: No Performance Status: Patient continues to have declining functional status, did experience ground- level fall last week. Patient's balance is poor and tends to fall back. Patient reports when he feels like he is going to fall, he purposefully falls forward on the bed or towards his walker. Patient feels like his feet are off balance. does supervise and oversee showering once a week, patient "wants exercises", does do them intermittently from long time ago. Encouraged again to continue with short walks in house with rolling walker. - Palliative Care Discussion: Patient with very little insight into his current condition, though does have periods where he gets anxious. He does not identify any things that will make things better, Aliyah is quite inattentive and capable caregiver but with very little respite. Did spend some time to talk to Aliyah about long-term planning. With patient's fall, she was unable to get them up, did eventually get there so reviewed lift assist again. Discussed patient needs right going into the future, she will not be able to care for him if he is not ambulatory or has more frequent falls. Encouraged to her to take some respite time and go with her daughter who is a nurse, to visit the memory care units up in [place]. So that at the point of crisis, she understands what they do and do not provide, cost, but also encouraged to put her name on the waiting list.Aliyah has used caregivers for short respite, but does find them quite expensive, continues to struggle with patient's fluctuating status, but does recognize expected to continue to decline. Impression and Recommendations - Palliative Care Impression: This is a 89-year-old gentleman with dementia and behavioral disturbances, neuropsychiatric behaviors, and most recently ground-level fall. Patient has been responding to alprazolam for fluctuating anxiety, goals of care remain to focus on comfort, quality of life issues, and avoiding hospitalization. Palliative care providing support for patient and in home setting and anticipatory guidance. Recommendations/Counseling Done: 1. Anxiety. This appears to be multifactorial, manifests itself with increased nervousness, dyspnea, and can translate into panic attacks. Patient is responding to the alprazolam as needed as needed, clarified she can use it alongside the mirtazapine, using 15 mg in a.m. and 30 mg at night with improved overall. We will continue to monitor. 2. Pruritus unspecified. Patient has had this long-term, currently on intermittent hydroxyzine, no rash demonstrated. We will continue to monitor, may trial pregabalin, if needed. 3. Dementia with behavioral disturbances. Patient currently is managing on his regimen, though we did review can use more alprazolam on if needed, particularly since he does respond well to this. We will continue to monitor. 4. Weight loss. Patient is holding steady at 141, though appetite does fluctuate. They do use Ensure if needed to supplement for meals. 5. Ground-level fall. Patient did sustain injury, but resolved symptoms within 2 or 3 days. Reviewed lift assist, as well as concerns for into the future. Patient has significant balance issues. He is wanting to know how to "get stronger". Has had therapy in the past but was not compliant. Still has exercises, encouraged to use these as well as frequent ambulation in home with walker. 6. Advanced care planning. We will continue to monitor patient's functional decline, cognitive decline, weight loss patient with no recent infections but now has had a fall. Patient's POLST is with DN AR/DNI and comfort measures, depending on the situation, would like to transition to hospice and keep him at home, but does recognize limitations on her ability to care for him with her advanced age as well. Counseled to encourage to explore memory care units on [place], as patient would not be appropriate for assisted living level of care. She does have a daughter who is a nurse, encouraged to enlist her help and exploring options. 65 minutes with greater 50% of this done [id number] with examining patient's, reviewing fall risk precautions and fall review, anticipatory guidance provided in the context of disease trajectory, resources for transition to alternative settings, and anticipatory guidance
== END 2021-08-08 11:06 | disposition home or self-care (01) ==
LOC: PC 11:05
PROVIDERS: ATTEND Nurse Practitioner Adult Health
DX: Z51.5 Encounter for palliative care (principal); F03.91 Unspecified dementia, unspecified severity, with behavioral disturbance; F41.9 Anxiety disorder, unspecified; L29.9 Pruritus, unspecified; Z91.81 History of falling; R53.1 Weakness; R63.0 Anorexia; Z66 Do not resuscitate; R63.4 Abnormal weight loss
CPT/HCPCS: 99350

== ENCOUNTER 2021-09-08 15:15 | Outpatient (CLI) | payer MEDICARE, OTHER ==
--- NOTE | 2021-09-08 19:43 | CONSULTATION NOTE ---
Palliative Care Follow Up - Referral Referring Provider: Dr. Angus Avilez Time of Visit: [id number] Referral setting: Home Referral Reason: Dementia with behavioral disturbances/GLF/Anxiety - Information Sources Records reviewed: Previous records reviewed History/Review of Systems obtained from: Patient, Family ( Aliyah, her daughter) Exam limitations: Clinical condition (patient with moderate dementia) - History of Present Illness Update Brief HPI Update: Patient is an 89-year-old gentleman who goes by "Harrison", who presents with dementia and behavioral disturbances. His neuropsychiatric behaviors are centered around his significant anxiety, which triggers both breathlessness and suspect worsens his pruritus. He had also has periods of intermittent agitation, paranoia, delusions, hypersexuality which provides challenges for the . Patient had a fall, she had gone to the grocery store, I suspect he laid on the ground for over an hour. They did have some lift assist, patient without injury. Patient continues to have fluctuating behaviors, functional status, and restlessness at night. Patient has not had any further weight loss, today with his boots with thin at 146.2. He does have intermittent exacerbations of his pruritus, needing extra hydroxyzine currently scheduled in a.m. and p.m. Hanny ent is ambulatory with a walker, though 's daughter here today, and reports patient had "a freezing episode", and was somewhat nonresponsive/out of it for a period of time. Patient does not recall any of these, concerns are expressed by Aliyah's children for the increasing caregiving burden. Past Medical History: Hypertension, atrial fib off anticoag, hypertension, dementia, seizure disorder, RLS, TIA/stroke, BPH, dental implants, anxiety, claustrophobia, osteoarthritis, pruritus without rash, surgeries include cholecystectomy, knee replacement, cataracts, skin cancer surgery Social History - Living Situation Living arrangement: At home Living Situation: With spouse/s.o. Support System: Patient lives at home with his spouse Aliyah, she is in fairly good health despite her advanced age as well. She is getting somewhat exhausted as he does have some more difficult nights. 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 He had been to for 40 years this is a second marriage for them both. He does have 3 children though they are not involved in his care. 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 They still live on the family farm [place]. Aliyah's children, check on her regularly, though her daughter is getting ready to go to [place] for 3 weeks. They have been helping her with the farm as well as some respite. Medications/Allergies - Medications Home Medications: Ambulatory Orders Medication Instructions Recorded Confirmed Carvedilol 12.5 mg PO BID 11/08/16 08/08/21 Alprazolam [Xanax] 0.25 mg PO TID PRN MDD 6 tabs 05/27/21 08/08/21 Mirtazapine 15 mg PO .1 TAB AM 2 @ HS 05/27/21 08/08/21 hydrOXYzine HCL [Hydroxyzine HCl] 10 - 20 mg PO Q4HR PRN 05/27/21 08/08/21 - Allergies Allergies/Adverse Reactions: Allergies Allergy/AdvReac Type Severity Reaction Status Date / Time shellfish derived Allergy Severe Emesis/Diar Verified 02/15/21 14:05 breann procaine Allergy Intermediate Swelling Verified 02/15/21 14:05 diltiazem AdvReac Intermediate Hypotension Verified 02/15/21 14:05 bee stings Allergy Severe Anaphylaxis Uncoded 02/15/21 14:05 salmon AdvReac Severe Emesis/Diar Uncoded 02/15/21 14:05 breann shrimp AdvReac Severe Emesis/Diar Uncoded 02/15/21 14:05 breann Review of Systems - Constitutional Constitutional: reports: Fatigue (persistent and worsening), Weakness, Poor appetite, Weight loss (141 at MD this last week; 167 at ED visit in January; 153 today with heavy boots on; 141 08/08 without boots; 146.2 with boots on today). denies: Fever - Eyes Eyes: reports: Vision loss, Other (c/o vision loss; saw eye MD has blepheritis but has not done the treatments; hates eye drops; eyes reddened) - Ears, Nose & Throat Ears, Nose & Throat: reports: Hearing loss, Dry mouth - Cardiovascular Cardiovascular: reports: Lightheadedness, Exertional dyspnea, Decr. exercise tolerance - Respiratory Respiratory: reports: Cough (intermittent dry cough), SOB at rest (at times), SOB with exertion - Gastrointestinal Gastrointestinal: reports: Poor appetite, Early satiety. denies: Constipation - Genitourinary Genitourinary: reports: Frequency - Musculoskeletal Musculoskeletal: reports: Stiffness, Muscle weakness, Assistive devices (has rolling walker/cane) - Integumentary Integumentary: reports: Pruritis, Dryness. denies: Rash - Neurological Neurological: reports: General weakness, Memory problems, Incoordination (falls backwards when without walker) - Psychiatric Psychiatric: reports: Depression, Anxiety, Delusions, Behavior disturbances (mild agitation; "stubborness" needs to be redirected; perserverative) - Endocrine Endocrine: reports: Hypothyroidism, Intolerance to cold - All Other Systems All Other Systems: reports: Other (limited by what patient can recall; ROS mostly from ) Physical Exam - Vital Signs Temperature: 97.0 C Pulse Rate: 88 Respiratory Rate: 18 O2 Saturation: 98 Blood Pressure: 112/52 (sitting; 102/64 standing) - Physical Exam General Appearance: positive: No acute distress, Alert Eyes Bilateral: positive: Normal inspection, Conjunctivae nml, No scleral icterus, Other (rims of eyes reddened / swollen). negative: No lid inflammation ENT: positive: No signs of dehydration Neck: positive: Trachea midline Cardiovascular: positive: Irregularly irregular Respiratory: positive: Diminished in bases, Other (decreased RLL). negative: Wheezes Abdomen: positive: Non-tender, Soft Skin: positive: Dryness. 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 He is able to still independently bathe supervised by his , though they are looking at adding caregiving for bathing. - Palliative Care Discussion: Patient has very little insight into his current condition, does have fluctuating anxiety and perseveration. At this point in time is cooperative with , does have restless nights, family to get her a baby monitors so she does not have to sleep with them. She is getting quite exhausted when he does not sleep well. Patient has had another fall, patient's without injury at this point in time, though we did discuss most likely this would precipitate a transition to needing more care or placement. Aliyah's daughter is a nurse, we discussed again transition and hospice criteria, patient currently does not meet this. It will also not solve the problem of patient's increasing care needs, but would be another layer of support. They are all quite open to this when patient meets criteria, explained the role of palliative care currently. Goals again are to delay placement if possible, if patient were to have an event to have a at home. Impression and Recommendations - Palliative Care Impression: This is a 89-year-old gentleman with dementia and behavioral disturbances, neuropsychiatric behaviors, and again another recent fall. Patient does have fluctuating functional status, remains high risk for injury from fall, is demonstrating some caregiver fatigue with patient's increasing care needs. Palliative care providing support for patient and in home setting and anticipatory guidance. Recommendations/Counseling Done: 1. Anxiety. This does small appear to be multifactorial, fluctuates, does manifest itself with increased nervousness, dyspnea and has had in the past panic attacks. He has been doing a bit better with this, has not needed the alprazolam, but is available. We will continue to monitor. 2. Pruritus unspecified. Patient has had this long-term, does fluctuate, currently on intermittent hydroxyzine, no rash demonstrated. We will continue to monitor, may trial pregabalin worsens. 3. Dementia with behavioral disturbances. Patient currently managing on his regimen, using mirtazapine 15 mg a.m. 30 mg p.m. Patient has been cooperative, at this point no indication for antipsychotics. 4. Ground-level fall. Patient did not sustain injury this time, but was on the ground for greater than an hour. Patient most likely would not be able to use a lifeline for assistance, recommended patient not be left alone, is somewhat limited given minimal caregiving support. Reviewed would recommend a Lifeline for Aliyah at least, in case the 2 of him fell down or she was injured in helping him, as he can be quite unpredictable.They are going to get up baby monitor, as she has hearing problems, and is not getting good sleep and would not be able to hear him if he got out of bed. 5. Advanced care planning. Aliyah's daughter present, did discuss concerns regarding increasing caregiver burden for Aliyah. There has been some groundwork exploring memory care placement options, though quite expensive. We had discussed knee be good investment to have more caregiving to decrease stress on Aliyah, and prolong patient's ability to stay at home. Patient does have a POLST with DN AR/DNI and comfort measures. Did review hospice criteria with Aliyah's daughter, and continued monitoring by palliative care to help with transition when meets criteria. Patient is at high risk for sequela of a fall, aspiration, and further functional decline. 30 minutes with greater than 50% of this done in counseling regarding anticipatory guidance, management of behaviors, safety issues, and anticipatory guidance
== END 2021-09-08 15:16 | disposition home or self-care (01) ==
LOC: PC 15:15
PROVIDERS: ATTEND Nurse Practitioner Adult Health
DX: Z51.5 Encounter for palliative care (principal); F03.91 Unspecified dementia, unspecified severity, with behavioral disturbance; F41.9 Anxiety disorder, unspecified; L29.9 Pruritus, unspecified; Z04.3 Encounter for examination and observation following other accident; Z66 Do not resuscitate
CPT/HCPCS: 99348

== ENCOUNTER 2021-10-24 13:15 | Outpatient (CLI) | payer MEDICARE, OTHER ==
--- NOTE | 2021-10-24 14:07 | CONSULTATION NOTE ---
Palliative Care Follow Up - Referral Referring Provider: Dr. Angus Avilez Time of Visit: [id number] Referral setting: Home Referral Reason: Right hip pain/Dementia with behavioral disturbances - Information Sources Records reviewed: Previous records reviewed History/Review of Systems obtained from: Patient, Family ( Aliyah) Exam limitations: Clinical condition (patient able to participate in exam but STM deficits) - History of Present Illness Update Brief HPI Update: This is an 89-year-old gentleman who goes by "Harrison", has dementia, with fluctuating behavioral disturbances. His neuropsychiatric behaviors are centered around his anxiety which triggers both breathlessness and worsens his pruritus. He has had less episodes and complaints of this, in the context of not needing his fan anymore. He still has intermittent episodes of pruritus, no rash, this has been care home, and uses hydroxyzine scheduled in a.m. and p.m. Most recently patient has been complaining of left hip pain, notes increasing size or not on his right hip, on examination it is about the size of a walnut, tender to touch, not red or inflamed. It is firm, but does not feel like a bone shard. This appeared shortly after he had a fall over a month ago, and has continued to increase in size and and tenderness. He reports there is no pain at rest, only when he pushes on it or lays on it.Patient is able to bear weight, has not affected his walking, patient is convinced it is his "cartilage" has come from the hip. Unable to identify any etiology, patient is not really wanting intervention though if would be available may consider given he has difficulty on laying on it. Patient at his age with comorbidities most likely would not be a candidate for any kind of surgery. After much discussion and agreement we will get a hip and pelvis x-ray to see if able to gather more information regarding exactly what it might be. Patient also has been having some increased dizziness, and on 10/17 did decrease the Carvidiol to half tab of 12.5 mg twice a day, he is tolerating this fine, his blood pressure is 116/84 and improved. He continues with weight loss, is 142.8. His intake fluctuates, and has poor fluid intake. Past Medical History: Hypertension, atrial fibs off anticoagulant, dementia, seizure disorder, RLS, TIA/stroke, BPH, dental implants, anxiety, claustrophobia, osteoarthritis, pruritus without rash, surgeries include cholecystectomy, knee replacement, cataracts, skin cancer surgery Social History - Living Situation Living arrangement: At home Living Situation: With spouse/s.o. Support System: Patient lives at home with Aliyah, who is in fairly good health despite her advanced age. 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 They still live on the family farm which is [place]. Aliyah's children check on her regularly at least 2 or 3 times a month. They have been helping her with the farm as well as some respite. Medications/Allergies - Medications Home Medications: Ambulatory Orders Medication Instructions Recorded Confirmed Carvedilol 6.25 mg PO BID 11/08/16 10/27/21 Alprazolam [Xanax] 0.25 mg PO TID PRN MDD 6 tabs 05/27/21 10/27/21 Mirtazapine 15 mg PO .1 TAB AM 2 @ HS 05/27/21 10/27/21 hydrOXYzine HCL [Hydroxyzine HCl] 10 - 20 mg PO Q4HR PRN 05/27/21 10/27/21 - Allergies Allergies/Adverse Reactions: Allergies Allergy/AdvReac Type Severity Reaction Status Date / Time shellfish derived Allergy Severe Emesis/Diar Verified 02/15/21 14:05 breann procaine Allergy Intermediate Swelling Verified 02/15/21 14:05 diltiazem AdvReac Intermediate Hypotension Verified 02/15/21 14:05 bee stings Allergy Severe Anaphylaxis Uncoded 02/15/21 14:05 salmon AdvReac Severe Emesis/Diar Uncoded 02/15/21 14:05 breann shrimp AdvReac Severe Emesis/Diar Uncoded 02/15/21 14:05 breann Review of Systems - Constitutional Constitutional: reports: Fatigue (persistent and worsening), Weakness, Poor appetite, Weight loss (141 at MD this last week; 167 at ED visit in January; 153 today with heavy boots on; 141 08/08 without boots; 146.2 with boots on 09/08; 142.8 today with boots). denies: Fever - Eyes Eyes: reports: Vision loss, Other (c/o vision loss; saw eye MD has blepheritis does soaks intermittently/rarely) - Ears, Nose & Throat Ears, Nose & Throat: reports: Hearing loss, Dry mouth - Cardiovascular Cardiovascular: reports: Exertional dyspnea, Decr. exercise tolerance. denies: Lightheadedness (improved) - Respiratory Respiratory: reports: Cough (intermittent dry cough), SOB with exertion. denies: SOB at rest (improved) - Gastrointestinal Gastrointestinal: reports: Diarrhea (intermittent; will use peptobismal), Poor appetite, Early satiety. denies: Constipation - Genitourinary Genitourinary: reports: Frequency - Musculoskeletal Musculoskeletal: reports: Stiffness, Muscle weakness, Assistive devices (has rolling walker/cane), Other (right hip pain with swelling on exam only; no pain with weightbearin) - Integumentary Integumentary: reports: Pruritis, Dryness. denies: Rash - Neurological Neurological: reports: General weakness, Memory problems, Incoordination (falls backwards when without walker) - Psychiatric Psychiatric: reports: Depression, Anxiety, Delusions, Behavior disturbances (mild agitation; "stubborness" needs to be redirected; perserverative very focused on right hip) - Endocrine Endocrine: reports: Hypothyroidism, Intolerance to cold - All Other Systems All Other Systems: reports: Other (limited by what patient can recall; ROS mostly from ) Physical Exam - Vital Signs Temperature: 97.1 C Pulse Rate: 67 Respiratory Rate: 18 O2 Saturation: 99 (ra @ resr) Blood Pressure: 116/84 - Physical Exam General Appearance: positive: No acute distress, Alert Eyes Bilateral: positive: Normal inspection, No lid inflammation (right eye with residual blepheritis; left eye improved), Conjunctivae nml, No scleral icterus, Other (rims of eyes reddened / swollen) ENT: positive: No signs of dehydration Neck: positive: Trachea midline Cardiovascular: positive: Irregularly irregular Respiratory: positive: Diminished in bases, Other (decreased RLL). negative: Wheezes Abdomen: positive: Non-tender, Soft Skin: positive: Dryness. negative: Rash Extremities: positive: No pedal edema (difficult to evaluate with cowboy boots; wears them all the time; recently to handle attacher feet good), Other (located right hip firm walnut size swelling; patient says he can "move it" appears fixed on exam;) Neurologic/Psychiatric: positive: Mood/affect nml, Disoriented to time, Weakness, Flat affect Palliative Care - POLST Patient has POLST: Yes POLST Status: DNR, Comfort Measures Pain: Location (right hip with pressure when laying on it only; none at rest) Feelings of wellbeing/Perceived Quality of Life: Fair, Acceptable, No change Sleep: Variable sleep pattern Constipation: No Performance Status: Patient still ambulatory, does have some difficulty getting from sitting to standing. Has not had any further falls the last couple weeks. Aliyah does help him as far as oversight for bathing, cueing, and meals. Patient spends most the time sitting in his recliner during the day.He has ambulatory with walker only, as he falls back as far as his balance otherwise. - Palliative Care Discussion: Patient has very little insight into his current condition, currently is perseverating on his right hip. Unclear if this "lump" originated or is worsening from this fall as it has developed over several weeks. Patient fairly convinced that it is his cartilage peeling away, I am unable to discern the etiology. After much discussion weighing benefits and burdens of further testing or even intervention if were more serious, will go ahead and get x-ray for more information. Aliyah feels like she cannot get him to the walk-in clinic for this, will send orders on Wednesday. Aliyah's daughter has been traveling, but grandson is here today. She does get quite exhausted the caregiver fatigue, they continue to struggle with whether to add help for placement, but at this time feel like they are managing. Aliyah does have a good understanding of expected decline, is hopeful to be able to keep him at home if possible, but is aware of her own limitations. Patient does have a POLST with DNR/DNI and comfort focused care. Impression and Recommendations - Palliative Care Impression: This is an 89-year-old gentleman with dementia and behavioral disturbances, fluctuating neuropsychiatric behaviors, and intermittent falls. Today he does have a right lump on his hip, does not appear to have any difficulty with ambulation or weightbearing. We will follow-up to see if can discern etiology, though very realistic most likely not candidate for any intervention. Palliative care providing support for patient and in home setting and anticipatory guidance. Recommendations/Counseling Done: 1. Right hip swelling. Patient able to bear weight, tenderness only with palpation. Unclear underlying etiology, though patient is perseverating on it. We will go ahead and get x-ray on Wednesday, discussion regarding benefits and burdens of interventions particularly in the context of his current situation. 2. Anxiety. This appears to be multifactorial, fluctuates, he has been doing better with less dyspnea, using alprazolam only a few times a week. He is a mostly at night when he is unable to settle down. Continue to monitor. 3. Dementia with behavioral disturbances. Patient currently managing on his regimen, using mirtazapine 15 mg a.m. and 30 mg p.m. Patient's been cooperative at this point no indication for further antipsychotics. 4. Hypotension. Decrease of Carvedilol, patient with some less dizziness, blood pressure 116/84 and pulse 67. Seems to be tolerating this without any difficulty. 5. Advanced care planning. Patient continues with slow decline, fluctuating weight but downward trend, sleeping more, functional status declining but able to remain independent. Continue to weigh benefits and burdens of patient sta kehinde home, at high risk for sequela of falls, continue to take it "". Patient does have POLST with DNR/DNI and comfort focused care. Anticipatory guidance continues to be provided in the context of his dementia and home environment. 45 minutes with greater than 50% of this time in counseling regarding pain and symptom management, anticipatory guidance, and coordination of care.
== END 2021-10-24 13:16 | disposition home or self-care (01) ==
LOC: PC 13:15
PROVIDERS: ATTEND Nurse Practitioner Adult Health
DX: Z51.5 Encounter for palliative care (principal); M25.451 Effusion, right hip; M25.551 Pain in right hip; F03.91 Unspecified dementia, unspecified severity, with behavioral disturbance; F41.9 Anxiety disorder, unspecified; I95.9 Hypotension, unspecified; Z79.899 Other long term (current) drug therapy; Z91.81 History of falling; Z66 Do not resuscitate
CPT/HCPCS: 99349

== ENCOUNTER 2021-11-27 17:02 | Outpatient (CLI) | payer MEDICARE, OTHER | END 2021-11-27 23:59 | disposition left against medical advice (07) | LOC: EMS 17:02 | DX: Z03.89 Encounter for observation for other suspected diseases and conditions ruled out (principal) ==

== ENCOUNTER 2021-12-21 18:09 | Outpatient (CLI) | payer MEDICARE, OTHER | END 2021-12-21 23:59 | disposition short-term general hospital (02) | LOC: EMS 18:09 | DX: S60.011A Contusion of right thumb without damage to nail, initial encounter (principal); M25.552 Pain in left hip; M79.652 Pain in left thigh; W19.XXXA Unspecified fall, initial encounter; Y92.002 Bathroom of unspecified non-institutional (private) residence as the place of occurrence of the external cause | CPT/HCPCS: A0425; A0427 ==